=== PATIENT | male | born 1970 | race African-American/Black ===

== ENCOUNTER 2020-06-16 10:02 | Inpatient (IN) | payer MEDICARE, SELFPAY ==
[2020-06-16] VITALS (13 sets, daily range): BP systolic 132–194; BP diastolic 90–132; PULSE 58–99; RESP 16–26; TEMP 36.4–36.9; O2SAT 96–100; BMI 29.8; BMI 28.1
--- NOTE | 2020-06-16 10:22 | EKG12_ITS ---
Test Reason : DIZZY Blood Pressure : / mmHG Vent. Rate : 088 BPM Atrial Rate : 088 BPM P-R Int : 136 ms QRS Dur : 070 ms QT Int : 362 ms P-R-T Axes : 079 -38 -02 degrees QTc Int : 438 ms Normal sinus rhythm Left axis deviation Inferior infarct , age undetermined , cannot be excluded Abnormal ECG Confirmed by SHEFALI BOWERS, MAGALIS ([id number]), department editor MARVIN HERNANDEZ ([id number]) on 06/20/2020 10:54:12 AM Referred By: CELSO Confirmed By:MAGALIS MEEHAN MD
--- NOTE | 2020-06-16 10:24 | EDS_ITS ---
HPI History of Present Illness Chief Complaint: Dizziness Detail of Chief Complaint: Patient with symptoms for 2 days. Informant: patient Onset/Context/Timing Worsened by: Bright lights Narrative Narrative: Patient presents to the emergency department complaining of waking up 2 days ago with right eye pain and a headache. Patient states that he has been on an alcohol richards for the last 2 months and is not sure if he fell or injured himself. Patient denies any numbness or tingling in the extremities. He denies weakness the extremities. Patient has been nauseated and vomiting off and on for 2 days. Describes blurred vision from the right eye. Patient has history of hypertension, diabetes, neuropathy, and alcohol abuse. Patient does state that his last visit with his primary care physician his blood pressure was 190s over 140s. Prior similar symptoms: No [facility] Medical History (Updated 06/16/20 @ 12:[address] Madie Ruggiero, ) Alcohol abuse Neuropathy Allergy/AdvReac Type Severity Reaction Status Date / Time egg AdvReac Nausea/Vom/ Verified 06/16/20 10:07 Diarrhea Social History Smoking Status: Current every day smoker ROS ROS ED Constitutional Constitutional ED: Reports systems reviewed and no addt'l complaints, except as documented; Denies body ache(s), change in weight or chills Eyes Eyes: Reports blurry vision and other Details: Patient complains of right eye pain and headache and neck pain ; Denies acute decrease in peripheral vision, change in vision, double vision or loss of vision ENT ENT ED: Reports none and other; Denies ear pain, lip swelling, loss taste/smell, neck pain, otalgia or sore throat Cardiovascular Cardiovascular: Reports none; Denies abdominal pain, chest pain with activity, leg edema, lightheadedness, palpitations, rapid heart rate or syncope Respiratory/Chest Respiratory/Chest: Reports none; Denies change in mental status, dry cough, dyspnea, hemoptysis, shortness of breath at rest or shortness of breath with exertion Gastrointestinal Gastrointestinal: Reports none and vomiting; Denies abdominal pain, change in stool character, diarrhea, hematemesis, hematochezia, melena or rectal bleeding Genitourinary Genitourinary ED: Reports none; Denies abdominal discomfort, anuria, dysuria, genital pain or polyuria Musculoskeletal Musculoskeletal: Reports none; Denies arthralgias, back pain, difficulty walking, extremity pain, muscle weakness or myalgias Integumentary Reports none; Denies abscess or rash Neurologic Neurologic: Reports none, headache(s) and other Details: Patient complains of dizziness and difficulty with balance. ; Denies abnormal gait, confusion, focal weakness, frequent falls, loss of vision, numbness, paresthesias, radicular p ain, vertigo or weakness Psychiatric Psychiatric: Reports systems reviewed and no addt'l complaints, except as documented and none; Denies behavioral changes, confusion, difficulty concentrating, hallucinations, suicidal ideation, tactile hallucinations or visual hallucinations Endocrine Endocrinology: Denies none, cold intolerance, excessive sweating, fatigue or heat intolerance Hematologic/Lymphatic Hematologic/Lymphatic: Reports none; Denies anemia, easy bleeding or easy bruising Allergic/Immunologic Allergic/Immunologic ED: Denies as per HPI, none, lip swelling, mouth swelling, throat swelling, tongue swelling or hives EXAM Physical Exam Const Vital Signs: 06/16/20 10:03 06/16/20 10:42 06/16/20 10:45 Temperature 97.9 F Temperature Source Temporal Pulse Rate 65 91 Pulse Rate [Lying] 85 Pulse Rate [Sitting] 94 Pulse Rate [Standing] 99 Respiratory Rate 26 H 18 Blood Pressure 194/132 H 176/98 H Blood Pressure [Lying] 165/122 H Blood Pressure [Sitting] 170/107 H Blood Pressure [Standing] 178/118 H Blood Pressure Mean 152 124 Blood Pressure Mean [Lying] 136 Blood Pressure Mean [Sitting] 128 Blood Pressure Mean [Standing] 138 Pulse Ox 99 98 Oxygen Delivery Method Room Air Room Air 06/16/20 11:51 Temperature Temperature Source Pulse Rate Pulse Rate [Lying] Pulse Rate [Sitting] Pulse Rate [Standing] Respiratory Rate Blood Pressure 160/93 H Blood Pressure [Lying] Blood Pressure [Sitting] Blood Pressure [Standing] Blood Pressure Mean 115 Blood Pressure Mean [Lying] Blood Pressure Mean [Sitting] Blood Pressure Mean [Standing] Pulse Ox Oxygen Delivery Method Positive well nourished and well developed General Appearance ED: well developed and NAD HEENT Reports TM's clear and moist mucous membranes HEENT Narrative: Patient has diffuse tenderness to posterior scalp without evidence of bony step-offs or hematomas. normocephalic, atraumatic, trauma and tenderness Tympanic Membrane ED: Yes TM's clear Eyes PERRL and EOMs intact bilaterally General Eye ED: Yes other Other Details: Has tenderness palpation of the right globe. Pupils are bilaterally 2 mm and reactive. The cornea does not appear cloudy. ; Negative for pale conjunctiva or scleral icterus Neck no lymphadenopathy, supple and no JVD Neck Narrative: Patient has some diffuse tenderness over cervical spine and left cervical paraspinal musculature. General: tenderness Chest Wall inspection of chest normal and palpation of chest normal Chest: Negative for tenderness Resp normal respiratory effort and clear to auscultation bilaterally Effort and Inspection: Negative for respiratory distress or pain with movement Auscultation: Negative for rhonchi, wheezes or diminished lung sounds Cardio regular rate, regular rhythm, S1 normal heart sound, S2 normal heart sound and no murmurs Peripheral Pulses: pulses 2+ throughout GI normal to inspection, nondistended, normoactive bowel sounds, soft to palpation, non-tender, non-distended and no masses Back/Spine no CVA tenderness and no thoracic nor lumbar tenderness Extremity normal to inspection General Extremety ED: Negative for edema General Extremity: Negative for edema Neuro oriented x3, CN's II-XII intact bilaterally, no sensory deficits noted and gait normal Neuro Narrative: Finger-nose and heel dias testing within normal limits, negative Romberg, negative for drift, fundi benign. Hallpike maneuver performed was negative for nystagmus. Sensorium / Orientation: awake, alert, oriented to person, oriented to place and oriented to time Motor Exam: strength 5/5 throughout and strength abnormal Psych mental status grossly normal Skin no rashes or lesions noted and no wounds MDM MDM MDM Narrative Medical decision making narrative: Patient's labs essentially unremarkable. He does have some renal insufficiency. Discussed results with patient. At this point he still can continues to complain of dizziness with sitting up and monalisa ding and feeling like he is falling to the side. I recommended admission for further evaluation of his dizziness and I am concerned about possibly posterior circulation abnormality. Patient will need evaluation by ophthalmology as well as he complains of decreased vision in the right eye for several months but the pain in the eyes only been there for a couple of days. Lab Data Attestation: I reviewed the patient's lab results. Labs: Laboratory Results - last 24 hr 06/16/20 06/16/20 06/16/20 10:30 10:30 10:30 WBC 5.9 RBC 5.89 Hgb 17.3 H Hct 54.3 H MCV 92.2 MCH 29.4 MCHC 31.9 L RDW Std Deviation 45.0 H RDW Coeff of Bev 13.2 Plt Count 306 MPV 9.9 Immature Gran % (Auto) 0.200 Neut % (Auto) 39.8 L Lymph % (Auto) 33.3 [place] % (Auto) 19.6 H Eos % (Auto) 6.3 H Baso % (Auto) 0.8 Absolute Neuts (auto) 2.4 Absolute Lymphs (auto) 1.97 Nucleated RBC % 0 Sodium 138 Potassium 3.9 Chloride 104 Carbon Dioxide 32.0 Anion Gap 2 L BUN 16 Creatinine 1.87 H Estim Creat Clear Calc 53.60 Est GFR (MDRD) Af Amer 50 L Est GFR (MDRD) Non-Af 41 L BUN/Creatinine Ratio 8.6 L Glucose 142 H Calcium 9.4 Total Bilirubin 0.40 AST 23 ALT 21 Alkaline Phosphatase 84 Troponin I < 0.015 Total Protein 7.8 Albumin 3.2 Globulin 4.6 H Albumin/Globulin Ratio 0.7 L Lipase 106 Ethyl Alcohol 3.0 Radiography Diagnostic Testing: Radiology Impression Brain CT 06/16/20 11:00 IMPRESSION: Normal unenhanced CT scan of the brain. Electronically Signed: Dominick Fernandez MD at 11:27 EDT , Service support , Cervical Spine CT 06/16/20 11:00 IMPRESSION: Marked degree of the disc space narrowing with moderate degree of bilateral neural foraminal and moderate degree of central canal stenosis at the C5-C6 level. Electronically Signed: Dominick Fernandez MD at 11:29 EDT , Service support , EKG Initial EKG: Interpretation: Sinus Rhythm Comments: Sinus rhythm at 88 bpm with no acute ST segment changes noted. Prior EKG tracings: not available for review Discharge Plan Triage Chief Complaint: Dizziness ED Provider: Madie Ruggiero Dx/Rx/DC Orders Clinical Impression: Dizziness, Acute right eye pain, ETOH abuse Primary Care Provider: Michael Ritter Referrals: Michael Ritter, [Primary Care Provider] - Disposition Disposition: Acute Care Hospital [facility]
[2020-06-16] MEDS: Morphine 4 MG/ML Syringe IV (10:35)
[2020-06-16] MEDS: 0.9% Normal Saline 1,000 ML 1000 ML IV (10:35)
[2020-06-16] MEDS: Ondansetron 4 MG/2 ML Vial IV (10:35)
[2020-06-16 10:41] LABS: Absolute Lymphocyte Count 1.97 X10^3/uL (0.83-4.51); Absolute Neutrophil Count 2.4 X10^3/uL (2.0-7.7); Basophil# 0.05 X10^3/uL; Basophil% 0.8 % (0-1); Eosinophil# 0.37 X10^3/uL; Eosinophils% 6.3 % (0-5); Hematocrit 54.3 % (40-54); Hemoglobin 17.3 g/dL (13.0-16.5); Lymphocyte # 1.97 X10^3/ul (0.83-4.51); Lymphocyte % 33.3 % (19-41); Mean Corp Hgb Conc 31.9 g/dL (32-36); Mean Corpuscular Hgb 29.4 pg (27.0-32.0); Mean Corpuscular Volume 92.2 fL (80-94); Mean Platelet Vol. 9.9 fl (6.2-12.0); Monocyte# 1.16 X10^3/uL; Monocyte% 19.6 % (0-10); NRBC Flagged by Analyzer 0 % (0-5); Neutrophil # 2.36 X10^3/uL (2.7-7.7); Neutrophil % 39.8 % (47-70); Platelet Count 306 K/mm3 (150-450); RBC Distribution Width CV 13.2 % (11.6-14.6); Red Blood Count 5.89 M/mm3 (4.6-6.2); White Blood Count 5.9 K/mm3 (4.4-11.0)
[2020-06-16 10:53] LABS: ALB/GLOB Ratio 0.7 RATIO (0.9-2.4); AST(SGOT) 23 U/L (15-37); Alanine Aminotransfer ALT/SGPT 21 U/L (16-61); Albumin, Serum 3.2 g/dL (3.2-5.0); Alkaline Phosphatase 84 U/L (45-117); Anion Gap 2 (5-15); BUN 16 mg/dL (7-18); BUN/Creat Ratio 8.6 RATIO (10-20); Calcium,Total 9.4 mg/dL (8.5-10.1); Chloride 104 mmol/L (98-107); Creatinine, Serum 1.87 mg/dL (0.70-1.30); EST Glomerular Filtration Rate 41 mL/min (>60); Est Glom Filt Rate - Afr Amer 50 mL/min (>60); Globulin 4.6 g/dL (2.2-4.2); Glucose 142 mg/dL (74-106); Lipase 106 U/L (73-393); Potassium 3.9 mmol/L (3.5-5.1); Protein, Total 7.8 g/dL (6.4-8.2); Sodium Level 138 mmol/L (136-145)
--- NOTE | 2020-06-16 11:00 | CT_ITS ---
STUDY: CT BRAIN WITHOUT CONTRAST REASON FOR EXAM: Male, 49 years old. HEADACHE. Dizziness. Tremors. Vomiting. RADIATION DOSAGE (If Supplied By Facility): CTDIvol = ( 44.99 ) mGy, DLP = ( 829.85 ) mGycm TECHNIQUE: Transaxial CT imaging of the brain was performed without administration of intravenous contrast material. Individualized dose optimization techniques were used for this CT. COMPARISON: No relevant priors. FINDINGS: Normal soft tissue structures. Normal calvarium. Normal size ventricles and extra-axial spaces for the patient''s age. Normal white matter tracts of the cerebral hemispheres. Normal basal ganglia and thalami. Normal brainstem. Normal cerebellum. There is no intracranial hemorrhage. There are no findings of an acute ischemic infarction. Normal visualized paranasal sinuses. CT/Brain/Head without Contrast IMPRESSION: Normal unenhanced CT scan of the brain. Electronically Signed: Dominick Fernandez MD at 11:27 EDT , Service support ,
--- NOTE | 2020-06-16 11:00 | CT_ITS ---
STUDY: CT CERVICAL SPINE WITHOUT CONTRAST REASON FOR EXAM: Male, 49 years old. Neck pain. Dizziness and headaches. RADIATION DOSAGE (If Supplied By Facility): CTDIvol = ( 27.86 ) mGy, DLP = ( 634.98 ) mGycm TECHNIQUE: High resolution transaxial imaging was performed without contrast material. Sagittal and coronal images were reconstructed. Individualized dose optimization techniques were used for this CT. COMPARISON: None FINDINGS: Normal craniovertebral junction. Normal anterior atlantoaxial articulation. Normal odontoid process. There is straightening of the normal cervical lordosis. Normal vertebral bodies and posterior osseous elements. C2-3: Normal endplates. Normal disc height and morphology. Normal central canal and intervertebral neuroforamina. C3-4: Marked degree of disc space narrowing. Spondylosis. C4-5: Marked degree of disc space narrowing. Prominent anterior spondylosis. Minimal degree of retrolisthesis of C4 on C5. Moderate degree of bilateral neural foraminal and moderate degree of central canal stenosis. C5-6: The patient is status post anterior fusion at the C5-C6 level. There is obliteration of the disc space. C6-7: Normal endplates. Normal disc height and morphology. Normal central canal and intervertebral neuroforamina. C7-T1: Normal endplates. Normal disc height and morphology. Normal central canal and intervertebral neuroforamina. Normal visualized soft tissue structures. CT/Spine Cervical without Contras IMPRESSION: Marked degree of the disc space narrowing with moderate degree of bilateral neural foraminal and moderate degree of central canal stenosis at the C5-C6 level. Electronically Signed: Dominick Fernandez MD at 11:29 EDT , Service support ,
[2020-06-16] MEDS: Labetalol 100 MG/20 ML Vial 20 MG IV (11:07)
[2020-06-16] MEDS: Tetracaine 0.5% Ophthalmic Bottle 1 DRP RIGHT EYE (11:48)
[2020-06-16] MEDS: HYDROmorphone 1 MG/ML Syringe IV (11:50)
[2020-06-16] MEDS: 0.9% Normal Saline 1,000 ML 150 ML IV (13:56)
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
--- NOTE | 2020-06-16 16:15 | CASEMGMT ---
RN CM HOME SPECIALIST CM to room to meet with patient for initial transition planning/care coordination assessment. RN AZUCENA introduced self and role at [facility]. Pt voices understanding and consents to assessment at this time. Pt resting in bed in no distress at this time. Pt is A/O at this time and answers all questions appropriately. Care providers, pharmacy, and demographics verified/updated at this time. PCP: Dr Ritter Specialists: none Preferred Pharmacy: [facility] [place] Insurance: [facility] Prescription Benefit: Yes Living Will/HPOA: Has both. , [place]ie, is Healthcare POA LNOK: , [place] Living Arrangements: Lives w/his , Dixie, daughter, and grandson in 2-story home. Denies difficulty w/stairs. Independent w/ADL's. /pt share home mgmt tasks. Transportation: DME: States has the following DME: cane, nebulizer, glucometer. States may be interested in getting a shower chair at some time. Pt made aware insurance does not cover these and informed of where these could be purchased. Pt states no need for further DME at this time. HHC/SNF: No hx of SNF. Has had HHC in the past for wound care after surgery. Denies need for HHC or OP therapy. Pt wishes to return home and states has no concerns with going home at time of discharge. CM to follow for any discharge planning/needs. Pt voices no concerns/needs at this time. Advised pt to ask for CM if any questions/concerns/needs arise. Voices understanding. PLAN: Home SW c/s for ETOH use. Taras ZEPEDA RN, CM
[2020-06-16 17:53] LABS: Bacteria 0 SEEN /hpf (None Seen); Mucous, Urine 0 SEEN /hpf (<or=2+); White Blood Cells 0 SEEN /hpf (0-5)
[2020-06-16 17:59] LABS: Color, Urine Yellow (Yellow); Glucose, Dipstick 1000 mg/dl (Normal); Ketone-Dipstick 5 mg/dl (Negative); Leukocyte Esterase-Dipstick Negative /ul (Negative); Nitrite-Dipstick Negative (Negative); Occult Blood-Urine 10 /ul (Negative); Protein-Dipstick 500 mg/dl (Negative); Specific Gravity, Urine 1.025 (1.002-1.030); Urine Bilirubin Dipstick Negative (Negative); Urine Clarity Clear (Clear); Urine Urobilinogen 4 mg/dl (Normal)
[2020-06-16 18:37] LABS: Red Blood Cells-Urine 0-5 SEEN /hpf (0-5)
[2020-06-16 18:38] LABS: Squamous Epithelial Cells - UA 0-5 SEEN /hpf (0-5)
[2020-06-16] MEDS: hydrALAZINE 20 MG/ML Vial 10 MG IV (19:21)
[2020-06-16] MEDS: 0.9% Saline Lock 10 ML Syringe IV (19:22)
[2020-06-16] MEDS: Acetaminophen 325 MG Tablet 650 MG PO (20:24)
[2020-06-16 20:36] LABS: Bedside Glucose 230 mg/dL (70-110)
[2020-06-16] MEDS: Insulin Lispro 100 UNIT/ML INSULN.PEN SC (20:40)
[2020-06-16] MEDS: Baclofen 10 MG Tablet PO (20:40)
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
[2020-06-16] MEDS: 0.9% Normal Saline 1,000 ML 125 ML IV (22:34)
[2020-06-16] MEDS: Albuterol 2.5 MG/3 ML VIAL.NEB. INHALATION (22:36)
[2020-06-16] MEDS: Budesonide Respules 0.5 MG/2 ML AMPUL.NEB. INHALATION (22:37)
[2020-06-17] VITALS (8 sets, daily range): BP systolic 149–160; BP diastolic 76–109; PULSE 68–106; RESP 16–18; TEMP 36.6–36.7; O2SAT 94–100
[2020-06-17 02:56] LABS: Bedside Glucose 50 mg/dL (70-110)
[2020-06-17 03:16] LABS: Bedside Glucose 99 mg/dL (70-110)
[2020-06-17] MEDS: 0.9% Normal Saline 1,000 ML 125 ML IV (06:17)
[2020-06-17] MEDS: Albuterol 2.5 MG/3 ML VIAL.NEB. INHALATION ×2 (06:51→19:22)
[2020-06-17] MEDS: Budesonide Respules 0.5 MG/2 ML AMPUL.NEB. INHALATION ×2 (06:51→19:22)
[2020-06-17 07:00] LABS: Absolute Neutrophil Count 1.5 X10^3/uL (2.0-7.7); Basophil# 0.03 X10^3/uL; Basophil% 0.7 % (0-1); Eosinophil# 0.44 X10^3/uL; Hematocrit 46.9 % (40-54); Hemoglobin 14.9 g/dL (13.0-16.5); Lymphocyte % 38.8 % (19-41); Mean Corp Hgb Conc 31.8 g/dL (32-36); Mean Corpuscular Hgb 29.2 pg (27.0-32.0); Mean Corpuscular Volume 91.8 fL (80-94); Monocyte# 0.68 X10^3/uL; Monocyte% 15.5 % (0-10); NRBC Flagged by Analyzer 0 % (0-5); Neutrophil # 1.53 X10^3/uL (2.7-7.7); Platelet Count 257 K/mm3 (150-450); RBC Distribution Width CV 13.2 % (11.6-14.6); RBC Distribution Width SD 44.7 fl (35.1-43.9); Red Blood Count 5.11 M/mm3 (4.6-6.2); White Blood Count 4.4 K/mm3 (4.4-11.0)
[2020-06-17 07:25] LABS: Anion Gap 4 (5-15); BUN 10 mg/dL (7-18); BUN/Creat Ratio 7.1 RATIO (10-20); Calcium,Total 8.4 mg/dL (8.5-10.1); Chloride 110 mmol/L (98-107); EST Glomerular Filtration Rate 58 mL/min (>60); Est Glom Filt Rate - Afr Amer 70 mL/min (>60); Glucose 106 mg/dL (74-106); Potassium 3.5 mmol/L (3.5-5.1); Sodium Level 140 mmol/L (136-145)
[2020-06-17] MEDS: Insulin Lispro 100 UNIT/ML INSULN.PEN 20 UNIT SC ×2 (08:23→12:14)
[2020-06-17] MEDS: Gabapentin 600 MG Tablet PO ×3 (08:24→19:59)
[2020-06-17] MEDS: Gabapentin 300 MG Capsule PO ×3 (08:24→19:59)
[2020-06-17] MEDS: Tamsulosin HCl 0.4 MG Capsule PO (08:25)
[2020-06-17] MEDS: amLODIPine 10 MG Tablet PO (08:25)
[2020-06-17] MEDS: Baclofen 10 MG Tablet PO ×4 (08:25→21:40)
[2020-06-17] MEDS: Pantoprazole Sodium 20 MG Tablet PO (08:26)
--- NOTE | 2020-06-17 08:42 | NURSING ---
bp meds given early d/t elevated b/p
[2020-06-17] MEDS: Acetaminophen 325 MG Tablet 650 MG PO (10:12)
[2020-06-17] MEDS: LORazepam 2 MG/ML Syringe IV (10:13)
--- NOTE | 2020-06-17 10:35 | CT_ITS ---
STUDY: CT BRAIN WITHOUT CONTRAST REASON FOR EXAM: Male, 49 years old. Dizziness for several days, right vision loss RADIATION DOSAGE (If Supplied By Facility): CTDIvol = ( 38.43 ) mGy, DLP = ( 712.69 ) mGycm TECHNIQUE: Transaxial CT imaging of the brain was performed without administration of intravenous contrast material. Individualized dose optimization techniques were used for this CT. COMPARISON: Yesterday FINDINGS: Normal soft tissue structures. Normal calvarium. Normal size ventricles and extra-axial spaces for the patient''s age. Normal white matter tracts of the cerebral hemispheres. Normal basal ganglia and thalami. Normal brainstem. Normal cerebellum. There is no intracranial hemorrhage. There are no findings of an acute ischemic infarction. Normal visualized paranasal sinuses. CT/Brain/Head without Contrast IMPRESSION: Normal unenhanced CT scan of the brain. Electronically Signed: Shay Villalobos MD ([place]) at 11:50 EDT , Service support ,
--- NOTE | 2020-06-17 11:27 | NURSING ---
to CT scan via bed
--- NOTE | 2020-06-17 11:40 | CASEMGMT ---
SOCIAL WORK Referral Source: Case Management Reason for Referral: Substance Abuse-alcohol Met with patient and patient's in room. Patient gave permission to speak openly with present. Patient admits to daily alcohol use and states, I drink to get drunk. It helps me forget. Patient tearful stating, my family wants me to do this, and I think I'm ready. Education provided on RAMP. Patient wanting detox at this time. Informed nursing and physician. Will update [facility] Treatment Navigator. Plan: RANJEET Fernandez MSW, SR ACCOUNT EXECUTIVE
[2020-06-17 12:00] LABS: Bedside Glucose 406 mg/dL (70-110)
[2020-06-17] MEDS: Phenobarbital 32.4 MG Tablet 64.8 MG PO ×3 (12:13→19:59)
[2020-06-17] MEDS: Insulin Lispro 100 UNIT/ML INSULN.PEN SC ×2 (12:14→21:40)
--- NOTE | 2020-06-17 12:35 | NURSING ---
Marques Barrett navigator informed of pt's agreement to the RAMP program.
--- NOTE | 2020-06-17 12:43 | NURSING ---
reviewed all10 of RAMP med detox guidelines and pt tearfully signed- aware she is to leave room by 12:45
--- NOTE | 2020-06-17 13:52 | CASEMGMT ---
SOCIAL WORK Call to Marques with [facility]. Marques reports was notified by nursing and will be in to complete assessment. Fred Fernandez, INSPECTOR SET UP AND LAY OUT, COMPENSATION ADMINISTRATOR
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
[2020-06-17 17:05] LABS: Bedside Glucose 134 mg/dL (70-110)
[2020-06-17 21:50] LABS: Bedside Glucose 298 mg/dL (70-110)
[2020-06-18] VITALS (9 sets, daily range): BP systolic 146–219; BP diastolic 84–143; PULSE 92–112; RESP 16–18; TEMP 36.4–36.9; O2SAT 93–98
[2020-06-18] MEDS: Phenobarbital 32.4 MG Tablet 64.8 MG PO ×7 (00:19→23:37)
[2020-06-18] MEDS: LORazepam 1 MG Tablet 2 MG PO ×2 (05:00→19:18)
[2020-06-18] MEDS: Folic Acid 1 MG Tablet PO (08:26)
[2020-06-18] MEDS: Gabapentin 300 MG Capsule PO ×2 (08:26→11:38)
[2020-06-18] MEDS: Thiamine Hydrochloride 100 MG Tablet PO (08:27)
[2020-06-18] MEDS: Gabapentin 600 MG Tablet PO ×3 (08:27→16:57)
[2020-06-18] MEDS: Tamsulosin HCl 0.4 MG Capsule PO (08:27)
[2020-06-18] MEDS: Baclofen 10 MG Tablet PO ×4 (08:29→20:12)
[2020-06-18] MEDS: amLODIPine 10 MG Tablet PO (08:29)
[2020-06-18] MEDS: Pantoprazole Sodium 20 MG Tablet PO (08:30)
[2020-06-18] MEDS: hydrALAZINE 20 MG/ML Vial 10 MG IV ×2 (08:42→20:11)
[2020-06-18 09:01] LABS: Anion Gap 5 (5-15); BUN 9 mg/dL (7-18); BUN/Creat Ratio 5.8 RATIO (10-20); Calcium,Total 8.7 mg/dL (8.5-10.1); Chloride 107 mmol/L (98-107); Creatinine, Serum 1.56 mg/dL (0.70-1.30); EST Glomerular Filtration Rate 51 mL/min (>60); Est Glom Filt Rate - Afr Amer 61 mL/min (>60); Estimated Creatinine Clearance 64.25 ml/min; Glucose 199 mg/dL (74-106); Potassium 4.2 mmol/L (3.5-5.1); Sodium Level 137 mmol/L (136-145)
--- NOTE | 2020-06-18 09:22 | NURSING ---
hydralazine given 10 ivp for elevated bp once iv access obtained
[2020-06-18] MEDS: Insulin Lispro 100 UNIT/ML INSULN.PEN 20 UNIT SC ×2 (10:17→11:36)
[2020-06-18] MEDS: Carvedilol 3.125 MG TABLET PO ×2 (10:17→20:12)
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
[2020-06-18] MEDS: Insulin Lispro 100 UNIT/ML INSULN.PEN SC ×2 (11:36→22:10)
[2020-06-18 11:40] LABS: Bedside Glucose 308 mg/dL (70-110)
[2020-06-18 16:35] LABS: Bedside Glucose 88 mg/dL (70-110)
[2020-06-18] MEDS: 0.9% Normal Saline 1,000 ML 125 ML IV ×2 (16:56→23:41)
[2020-06-18] MEDS: Acetaminophen 325 MG Tablet 650 MG PO (19:16)
[2020-06-18] MEDS: traZODone 100 MG Tablet PO (20:15)
[2020-06-18] MEDS: Budesonide Respules 0.5 MG/2 ML AMPUL.NEB. INHALATION (20:23)
[2020-06-18] MEDS: Albuterol 2.5 MG/3 ML VIAL.NEB. INHALATION (20:23)
[2020-06-19] VITALS (30 sets, daily range): BP systolic 97–189; BP diastolic 64–127; PULSE 60–98; RESP 17–24; TEMP 35.7–37; O2SAT 94–100
[2020-06-19] MEDS: LORazepam 2 MG/ML Syringe IV ×4 (00:07→06:44)
[2020-06-19] MEDS: Haloperidol Lactate 5 MG/ML Vial 2 MG IM ×2 (01:05→05:23)
[2020-06-19] MEDS: Acetaminophen 325 MG Tablet 650 MG PO (01:07)
--- NOTE | 2020-06-19 01:34 | NURSING ---
x1 Haldol order given, TYPE BAR AND SEGMENT ASSEMBLER pulled off the floor to sit with patient for awhile, Turkey Pinner aware.
[2020-06-19 02:41] LABS: Bedside Glucose 121 mg/dL (70-110)
[2020-06-19 03:26] LABS: Bedside Glucose > 500 mg/dL (70-110)
--- NOTE | 2020-06-19 04:08 | NURSING ---
Sitter remains at bedside, patient attempted to use the BSC/ and urinal 4 times within 10 minutes, patient very confused and unsteady yet adamant he needed to go. x3 staff rn's assisted him during this time. Patient finally able to void 300mls of clear urine. Primary RN paged for dulcolax suppository. Will continue to monitor.
[2020-06-19] MEDS: cloNIDine HCl 0.1 MG Tablet PO (05:09)
--- NOTE | 2020-06-19 05:22 | NURSING ---
paged about IV phenobarbital, per RN finishing department supervisor this unit cannot given IV phenobarbital per policy. MD notified. New orders received to D/C phenobar and give IM haldol. Phenobarbital returned to pharmacy.
--- NOTE | 2020-06-19 05:34 | NURSING ---
made Dr. Yuan aware pt spit out his 4 am phinobarb, ordered clonidine prn and phonobarb Iv. spoke with Eddie from pharmacy states ok to give phenobarb IV but with filter. gave clonidine to pt. pt stil restless and agitated. spoke to Dr. Yuan states since Iv phenobarb cannot be given on floor, asked discharge rn per data warehouse manager we cannot give IV phenobarb unless pt is in critical care area. states ok to give haldol now and d/c Iv phenobarbital.
--- NOTE | 2020-06-19 06:27 | NURSING ---
pt will be tx to ICU bed 3, report called to Sharla JACKSON in ICU.
[2020-06-19 06:35] LABS: Bedside Glucose 158 mg/dL (70-110)
--- NOTE | 2020-06-19 06:35 | NURSING ---
called Dixie Mclain, pts , made her aware pt is transferred in ICU bed 3 this morning d/t the meds were giving for his withdrawal are not working and he will be monitored there closely.
[2020-06-19] MEDS: 0.9% Saline Lock 10 ML Syringe IV (06:59)
[2020-06-19] MEDS: hydrALAZINE 20 MG/ML Vial 10 MG IV (06:59)
--- NOTE | 2020-06-19 07:09 | EX.PCM.CONCC ---
Assessment & Plan Assessment/Plan (1) Alcohol withdrawal: Status: Acute Code(s): F10.239 - Alcohol dependence with withdrawal, unspecified Plan: RECOMMENDATIONS: 1. Continue to monitor patient per [facility] protocol. 2. Start Precedex infusion for alcohol withdrawal symptoms. 3. Continue thiamine and folate. 4. Continue bronchodilator and inhaled corticosteroid. IMPRESSIONS: 1. Acute alcohol withdrawal The patient has a longstanding alcohol abuse history and was initially being maintained on a phenobarbital taper. However, the patient subsequently began to refuse to take p.o. medications and developed worsening agitation. He was then transferred to the ICU to be initiated on a Precedex infusion for symptomatic management of his alcohol withdrawal symptoms. Will also plan to continue thiamine and folate as previously ordered. 2. Acute kidney injury Likely prerenal in etiology. Given that the patient is currently n.p.o., supplemental IV fluids will be continued. Continue to monitor urine output. No current indication for renal replacement therapy. 3. History of hypertension/COPD/diabetes mellitus Complicates care, management, recovery and prognosis. Continue home medications as indicated. This note was generated with SnipSnap dictation software. It may contain incorrect words, spelling, and punctuation that were not noted in checking the note before signing. HPI Consult Data Date of Consult: 06/19/20 HPI Narrative Reason for Consultation: Acute alcohol withdrawal HPI Narrative: The patient is a 49-year-old male, with a history as outlined below, who presented to the emergency department on June 16 with complaints of dizziness and right eye pain. History pertinent to the patient's hospitalization was obtained primarily via chart review, as the patient is too somnolent to provide any additional input. The patient does have a history of chronic alcohol dependency. On presentation to the emergency department, the patient was noted to be afebrile and hemodynamically stable. He was maintaining appropriate oxygen saturations on room air. Initial laboratory evaluation revealed a normal white blood cell count. Chemistry profile was notable for a creatinine of 1.87. Alcohol level was unremarkable. CT head was also unremarkable. The patient was subsequently admitted to the hospital for further work-up of his dizziness and was placed on the CIIL protocol for possible alcohol withdrawal. The patient was initially on a phenobarbital taper and was receiving Ativan as needed. However, during the payroll secretary hours of June 19, the patient refused to take his phenobarbital and subsequently became more agitated. Therefore, he was transferred to the medical intensive care unit to be initiated on a Precedex infusion. The patient was last noted to have a total CIWA score of 18. [facility] Medical History (Updated 06/19/20 @ 09:[address] Jaquan Carlin MD) Alcohol abuse Alcohol abuse Anxiety Chronic pain COPD (chronic obstructive pulmonary disease) Depression Diabetes Hypertension Kidney disease Myocardial infarct Neuropathy Seizures Smoker Substance abuse Vision loss of right eye (~06/14/20) Home Medications albuterol sulfate 2.5 mg INHALATION Q4H PRN 06/16/20 [History Last Taken 1 Month Ago ~05/16/20] baclofen 10 mg PO 4X/DAY 06/16/20 [History Last Taken 06/14/20] budesonide-formoterol [Symbicort] 2 puff INHALATION BID 06/16/20 [History Last Taken 06/14/20] furosemide [Lasix] 10 mg PO DAILY 06/16/20 [History Last Taken Unknown] gabapentin 300 mg PO TID 06/16/20 [History Last Taken 06/14/20] gabapentin 600 mg PO TID 06/16/20 [History Last Taken 06/14/20] hydroxyzine HCl 50 mg PO TID PRN PRN 06/16/20 [History Last Taken 1 Month Ago ~05/16/20] insulin aspart U-100 20 unit SUBCUT TID 06/16/20 [History Last Taken 06/14/20] insulin glargine [Basaglar KwikPen U-100 Insulin] 40 unit SUBCUT QHS 06/16/20 [History Last Taken 06/15/20] lisinopril-hydrochlorothiazide 1 tab PO DAILY 06/16/20 [History Last Taken 06/15/20] omeprazole 20 mg PO DAILY 06/16/20 [History Last Taken 06/15/20] tamsulosin [Flomax] 0.4 mg PO DAILY 06/16/20 [History Last Taken Unknown] Allergy/AdvReac Type Severity Reaction Status Date / Time egg AdvReac Nausea/Vom/ Verified 06/16/20 10:07 Diarrhea Social History Smoking Status: Current every day smoker ROS Review of Systems ROS Unobtainable: due to encephalopathy and due to mental condition Physical Exam Narrative The patient's most recent lab work, culture data and imaging studies have all been personally reviewed. Const no apparent distress Exam Limitations: altered mental status HEENT normocephalic Mouth: oral and palatal mucosa normal Eyes PERRL Neck supple General: trachea midline Resp normal respiratory effort Effort and Inspection: tachypneic Auscultation: Negative for rales, rhonchi or wheezes Cardio S1 normal heart sound and S2 normal heart sound Rate: tachycardic GI normal to inspection, nondistended, normoactive bowel sounds Extremity no clubbing, cyanosis or edema Skin no rashes or lesions noted Neuro moves all extremities and no focal motor deficits Psych Activity / Motor Behavior: restless Lab / Micro Data Result Diagrams: 06/17/20 06:30 06/19/20 08:55 Labs: Laboratory Results - last 24 hr 06/18/20 06/18/20 06/18/20 08:30 11:32 15:50 Sodium 137 Potassium 4.2 Chloride 107 Carbon Dioxide 25.0 Anion Gap 5 BUN 9 Creatinine 1.56 H Estim Creat Clear Calc 64.25 Est GFR (MDRD) Af Amer 61 Est GFR (MDRD) Non-Af 51 L BUN/Creatinine Ratio 5.8 L Glucose 199 H Calcium 8.7 POC Glucose 308 H 88 06/18/20 06/19/20 06/19/20 22:00 02:28 06:21 Sodium Potassium Chloride Carbon Dioxide Anion Gap BUN Creatinine Estim Creat Clear Calc Est GFR (MDRD) Af Amer Est GFR (MDRD) Non-Af BUN/Creatinine Ratio Glucose Calcium POC Glucose > 500 H* 121 H 158 H Charges/Coding Visit Charges Inpatient E&M: 56270 Init Hosp L3
[2020-06-19] MEDS: 0.9% Normal Saline 1,000 ML 125 ML IV ×3 (07:42→23:11)
[2020-06-19] MEDS: Insulin Lispro 100 UNIT/ML INSULN.PEN SC ×2 (08:49→11:34)
[2020-06-19 08:55] LABS: Bedside Glucose 242 mg/dL (70-110)
--- NOTE | 2020-06-19 09:04 | PCM.PN.HOSP ---
Subjective Subjective: Patient is a 49-year-old gentleman with history of chronic alcohol dependence admitted with acute alcohol withdrawal. Patient was initially admitted to regular nursing floor for medical stabilization however he went into delirium tremens resulting in patient being transferred to the intensive care unit where patient was started on Precedex drip Objective Data Objective Data Vital Signs: Vital Signs Temp Pulse Resp BP Pulse Ox 97.8 F 91 24 H 166/105 H 99 06/19/20 06:39 06/19/20 09:00 06/19/20 09:00 06/19/20 09:00 06/19/20 09:00 Oxygen Delivery Method Room Air Weight: 207 lb 7.28 oz Body Mass Index (BMI) 28.1 Intake & Output: Intake and Output for Last 24 Hours 06/17/20 06/18/20 06/19/20 23:59 23:59 23:59 Intake Total 3664.58 / 3664.58 1443.75 / 1443.75 1015.33 / 1015.33 Output Total 3000 / 4000 3186 / 3186 2900 / 2900 Balance 664.58 / -335.42 -1742.25 / -1742.25 -1884.67 / -1884.67 Lab / Micro Data Result Diagrams: 06/17/20 06:30 06/19/20 08:55 Labs: Laboratory Results - last 24 hr 06/18/20 06/18/20 06/18/20 11:32 15:50 22:00 POC Glucose 308 H 88 > 500 H* 06/19/20 06/19/20 06/19/20 02:28 06:21 08:47 POC Glucose 121 H 158 H 242 H Physical Exam Narrative GENERAL: Significantly lethargic HEENT: Atraumatic; EYES; Anicteric, Normal Conjunctiva NECK; supple, normal thyroid, RESPIRATORY: Diminished to auscultation CARDIOVASCULAR: Regular S1 S2, GI: soft, normoactive bowel sounds, : No Renal angle tenderness; EXTREMITIES: No edema, no clubbing, MUSCULOSKELETAL: no muscle waisting NEURO: Lethargic but moving all extremities SKIN: No Rash PSYCH; lethargic Assessment & Plan Assessment/Plan (1) Alcohol withdrawal: Status: Acute Code(s): F10.239 - Alcohol dependence with withdrawal, unspecified Qualifiers: Complication of substance-induced condition: with delirium Qualified Code(s): F10.231 - Alcohol dependence with withdrawal delirium (2) Hypertension: Status: Chronic Code(s): I10 - Essential (primary) hypertension (3) BRIDGER (acute kidney injury): Status: Acute Code(s): N17.9 - Acute kidney failure, unspecified (4) Diabetes mellitus type 2 without retinopathy: Status: Acute Code(s): E11.9 - Type 2 diabetes mellitus without complications Plan: Patient is a 49-year-old gentleman with history of chronic alcohol dependence admitted with acute alcohol withdrawal. Patient was initially admitted to regular nursing floor for medical stabilization however he went into delirium tremens resulting in patient being transferred to the intensive care unit where patient was started on Precedex drip 1. Acute alcohol withdrawal with delirium tremens ?Patient was initially admitted for medical stabilization using phenobarb taper and managed on a regular nursing floor his condition however did worsen resulting in patient being transferred to the intensive care unit with initiation of Precedex drip and consultation placed to telemetry service 2. Accelerated hypertension ?Did continue patient home medications. Patient blood pressure control still not optimal plan is to adjust home meds with a goal of systolic of 140 and diastolic of 80 3. Acute kidney injury ?Patient was managed with hydration patient is on Lasix held on admission with subsequent monitoring of electrolyte 4. Diabetes mellitus type II -patient's oral hypoglycemics held. Placed on long acting insulin, Accu-Cheks a.c. and at bedtime and covered with sliding scale insulin 5. COPD ?Currently not seen exacerbation however did continue patient home bronchodilator regimen 6. BPH ?Patient is on tamsulosin did continue 7. GERD ?Patient is on PPI continued 8. DVT prophylaxis - On enoxaparin
[2020-06-19 09:24] LABS: Anion Gap 8 (5-15); BUN 10 mg/dL (7-18); BUN/Creat Ratio 8.3 RATIO (10-20); Calcium,Total 8.9 mg/dL (8.5-10.1); Chloride 102 mmol/L (98-107); EST Glomerular Filtration Rate 69 mL/min (>60); Est Glom Filt Rate - Afr Amer 83 mL/min (>60); Estimated Creatinine Clearance 83.53 ml/min; Glucose 203 mg/dL (74-106); Potassium 3.6 mmol/L (3.5-5.1); Sodium Level 136 mmol/L (136-145)
--- NOTE | 2020-06-19 09:33 | CASEMGMT ---
This RN AZUCENA participated in multidisciplinary rounds. Pt was admitted to [facility] for dizziness and ETOH abuse. Pt did sign papers for the ETOH detox program on 06/17/20 with SW. [facility] was notified at that time. Pt was transferred to ICU this am d/t increased w/d symptoms. Pt is not following commands and is very restless in bed. Pt is also hypertensive. SW to follow for ETOH detox. SStaten RENETTA ZENG
[2020-06-19] MEDS: Enoxaparin 40 MG/0.4 ML Syringe SC (11:34)
[2020-06-19 11:40] LABS: Bedside Glucose 197 mg/dL (70-110)
--- NOTE | 2020-06-19 11:40 | CASEMGMT ---
Social Work Note Pt is RAMP pt. SW updated Gisela with [employer]. Gisela to see pt once pt is medically stable and out of ICU. Bisi Duong ASSISTANT PROFESSOR OF ENGLISH, NURSE MIDWIFE
[2020-06-19] MEDS: Albuterol 2.5 MG/3 ML VIAL.NEB. INHALATION ×2 (13:17→18:50)
--- NOTE | 2020-06-19 15:53 | CHAPLAIN ---
Type of Pastoral Visit ___ Initial Visit ___ Follow-up Visit ___ On-call Visit ___ General Patient Visit ___ Spiritual Assessment ___ Family Conference ___ Bereavement ___ Rapid Response ___ Code Blue ___ Other (describe below) Pastoral Care Referral From ___ Patient ___ Family ___ Nurse ___ Physician ___ Plastics Design Engineer ___ High School Admissions Representative ___ Other (describe below) Sacrament/Intervention ___ Active listening ___ Anointing ___ Orthodoxy ___ Bereavement ___ Communion ___ Giselle exploration ___ ___ Life review ___ Prayer ___ Reconciliation ___ Sacrament of Sick ___ Supportive presence ___ Wedding ___ Other (describe below) Pastoral Comments patient is sedated and is sleeping with sitter in the room; no interventions performed on this date
[2020-06-19 17:11] LABS: Bedside Glucose 152 mg/dL (70-110)
[2020-06-19] MEDS: Budesonide Respules 0.5 MG/2 ML AMPUL.NEB. INHALATION (18:49)
[2020-06-20] VITALS (34 sets, daily range): BP systolic 94–181; BP diastolic 66–139; PULSE 63–102; RESP 12–21; TEMP 35.9–36.8; O2SAT 95–100
[2020-06-20 01:18] LABS: Bedside Glucose 134 mg/dL (70-110)
[2020-06-20 03:15] LABS: Absolute Lymphocyte Count 2.12 X10^3/uL (0.83-4.51); Basophil# 0.04 X10^3/uL; Basophil% 0.7 % (0-1); Eosinophil# 0.31 X10^3/uL; Eosinophils% 5.2 % (0-5); Hematocrit 48.7 % (40-54); Hemoglobin 15.8 g/dL (13.0-16.5); Lymphocyte # 2.12 X10^3/ul (0.83-4.51); Lymphocyte % 35.7 % (19-41); Mean Corp Hgb Conc 32.4 g/dL (32-36); Mean Corpuscular Hgb 29.5 pg (27.0-32.0); Mean Corpuscular Volume 90.9 fL (80-94); Mean Platelet Vol. 9.5 fl (6.2-12.0); Monocyte# 0.45 X10^3/uL; Monocyte% 7.6 % (0-10); NRBC Flagged by Analyzer 0 % (0-5); Neutrophil # 3.01 X10^3/uL (2.7-7.7); Neutrophil % 50.6 % (47-70); Platelet Count 307 K/mm3 (150-450); RBC Distribution Width SD 43.5 fl (35.1-43.9); Red Blood Count 5.36 M/mm3 (4.6-6.2); White Blood Count 5.9 K/mm3 (4.4-11.0)
[2020-06-20 03:27] LABS: Anion Gap 7 (5-15); BUN 13 mg/dL (7-18); BUN/Creat Ratio 11.4 RATIO (10-20); Calcium,Total 8.4 mg/dL (8.5-10.1); Chloride 108 mmol/L (98-107); Creatinine, Serum 1.14 mg/dL (0.70-1.30); EST Glomerular Filtration Rate 73 mL/min (>60); Est Glom Filt Rate - Afr Amer 88 mL/min (>60); Estimated Creatinine Clearance 87.92 ml/min; Glucose 149 mg/dL (74-106); Magnesium 2.1 mg/dL (1.6-2.6); Potassium 4.2 mmol/L (3.5-5.1); Sodium Level 139 mmol/L (136-145)
--- NOTE | 2020-06-20 06:34 | PCM.PN.INT ---
Subjective Subjective: The patient was seen and examined at the bedside this morning. Events from the last 24 hours have been reviewed. The patient is currently afebrile, hemodynamically stable and maintaining appropriate oxygen saturations on room air. The patient has remained calm overnight on Precedex. Objective Data Objective Data The patient's most recent lab work, culture data and imaging studies have all been personally reviewed. Vital Signs: Vital Signs Temp Pulse Resp BP Pulse Ox 97.8 F 68 18 165/106 H 99 06/20/20 00:00 06/20/20 06:00 06/20/20 06:00 06/20/20 06:00 06/20/20 06:00 Oxygen Delivery Method Room Air Weight: 208 lb 12.444 oz Body Mass Index (BMI) 28.1 Intake & Output: Intake and Output for Last 24 Hours 06/18/20 06/19/20 06/20/20 23:59 23:59 23:59 Intake Total 1443.75 / 1443.75 3130.25 / 3130.25 124.24 / 124.24 Output Total 3186 / 3186 3450 / 3450 Balance -1742.25 / -1742.25 -319.75 / -319.75 124.24 / 124.24 Lab / Micro Data Attestation: I reviewed the patient's lab results. Result Diagrams: 06/20/20 03:10 06/20/20 03:10 Labs: Laboratory Results - last 24 hr 06/19/20 06/19/20 06/19/20 06:21 08:47 08:55 WBC RBC Hgb Hct MCV MCH MCHC RDW Std Deviation RDW Coeff of Bev Plt Count MPV Immature Gran % (Auto) Neut % (Auto) Lymph % (Auto) [place] % (Auto) Eos % (Auto) Baso % (Auto) Absolute Neuts (auto) Absolute Lymphs (auto) Nucleated RBC % Sodium 136 Potassium 3.6 Chloride 102 Carbon Dioxide 26.0 Anion Gap 8 BUN 10 Creatinine 1.20 Estim Creat Clear Calc 83.53 Est GFR (MDRD) Af Amer 83 Est GFR (MDRD) Non-Af 69 BUN/Creatinine Ratio 8.3 L Glucose 203 H Calcium 8.9 Magnesium POC Glucose 158 H 242 H 06/19/20 06/19/20 06/19/20 11:32 17:09 21:10 WBC RBC Hgb Hct MCV MCH MCHC RDW Std Deviation RDW Coeff of Bev Plt Count MPV Immature Gran % (Auto) Neut % (Auto) Lymph % (Auto) [place] % (Auto) Eos % (Auto) Baso % (Auto) Absolute Neuts (auto) Absolute Lymphs (auto) Nucleated RBC % Sodium Potassium Chloride Carbon Dioxide Anion Gap BUN Creatinine Estim Creat Clear Calc Est GFR (MDRD) Af Amer Est GFR (MDRD) Non-Af BUN/Creatinine Ratio Glucose Calcium Magnesium POC Glucose 197 H 152 H 134 H 06/20/20 06/20/20 03:10 03:10 WBC 5.9 RBC 5.36 Hgb 15.8 Hct 48.7 MCV 90.9 MCH 29.5 MCHC 32.4 RDW Std Deviation 43.5 RDW Coeff of Bev 13.0 Plt Count 307 MPV 9.5 Immature Gran % (Auto) 0.200 Neut % (Auto) 50.6 Lymph % (Auto) 35.7 [place] % (Auto) 7.6 Eos % (Auto) 5.2 H Baso % (Auto) 0.7 Absolute Neuts (auto) 3.0 Absolute Lymphs (auto) 2.12 Nucleated RBC % 0 Sodium 139 Potassium 4.2 Chloride 108 H Carbon Dioxide 24.0 Anion Gap 7 BUN 13 Creatinine 1.14 Estim Creat Clear Calc 87.92 Est GFR (MDRD) Af Amer 88 Est GFR (MDRD) Non-Af 73 BUN/Creatinine Ratio 11.4 Glucose 149 H Calcium 8.4 L Magnesium 2.1 POC Glucose Physical Exam Narrative The patient's most recent lab work, culture data and imaging studies have all been personally reviewed. Const no apparent distress General Appearance: lethargic Exam Limitations: altered mental status HEENT normocephalic and head/scalp atraumatic Eyes PERRL Neck supple General: trachea midline Resp normal respiratory effort Auscultation: Negative for rales, rhonchi or wheezes Cardio regular rate, regular rhythm, S1 normal heart sound and S2 normal heart sound GI normal to inspection, nondistended, normoactive bowel sounds Extremity no clubbing, cyanosis or edema Skin no rashes or lesions noted Neuro no focal motor deficits Psych Mood & Affect: flat affect Assessment & Plan Assessment/Plan (1) Alcohol withdrawal: Status: Acute Code(s): F10.239 - Alcohol dependence with withdrawal, unspecified Qualifiers: Complication of substance-induced condition: with delirium Qualified Code(s): F10.231 - Alcohol dependence with withdrawal delirium Plan: RECOMMENDATIONS: 1. Continue to monitor patient per [facility] protocol. 2. Wean patient from Precedex as tolerated. 3. Continue thiamine and folate. 4. Continue bronchodilator and inhaled corticosteroid. IMPRESSIONS: 1. Acute alcohol withdrawal The patient has a longstanding alcohol abuse history and was initially being maintained on a phenobarbital taper. However, the patient subsequently began to refuse to take p.o. medications and developed worsening agitation. He was then transferred to the ICU to be initiated on a Precedex infusion for symptomatic management of his alcohol withdrawal symptoms. Will also plan to continue thiamine and folate as previously ordered. 2. Acute kidney injury Likely prerenal in etiology. Given that the patient is currently n.p.o., supplemental IV fluids will be continued. Continue to monitor urine output. No current indication for renal replacement therapy. 3. History of hypertension/COPD/diabetes mellitus Complicates care, management, recovery and prognosis. Continue home medications as indicated. This note was generated with sciencebite dictation software. It may contain incorrect words, spelling, and punctuation that were not noted in checking the note before signing. Visit Charges Inpatient E&M: 46463 Subs Hosp L3
[2020-06-20] MEDS: 0.9% Normal Saline 1,000 ML 125 ML IV ×3 (06:35→22:07)
--- NOTE | 2020-06-20 07:22 | PCM.PN.HOSP ---
Subjective Subjective: Patient remains in ICU on Precedex drip. Still remains significantly lethargic however awakens to firm sternal rub. Blood glucose levels remain uncontrolled Objective Data Objective Data Vital Signs: Vital Signs Temp Pulse Resp BP Pulse Ox 97.8 F 63 16 156/97 H 99 06/20/20 00:00 06/20/20 07:00 06/20/20 07:00 06/20/20 07:00 06/20/20 07:00 Oxygen Delivery Method Room Air Weight: 208 lb 12.444 oz Body Mass Index (BMI) 28.1 Intake & Output: Intake and Output for Last 24 Hours 06/18/20 06/19/20 06/20/20 23:59 23:59 23:59 Intake Total 1443.75 / 1443.75 3130.25 / 3130.25 1070.44 / 1070.44 Output Total 3186 / 3186 3450 / 3450 Balance -1742.25 / -1742.25 -319.75 / -319.75 1070.44 / 1070.44 Lab / Micro Data Result Diagrams: 06/20/20 03:10 06/20/20 03:10 Labs: Laboratory Results - last 24 hr 06/19/20 06/19/20 06/19/20 08:47 08:55 11:32 WBC RBC Hgb Hct MCV MCH MCHC RDW Std Deviation RDW Coeff of Bev Plt Count MPV Immature Gran % (Auto) Neut % (Auto) Lymph % (Auto) [place] % (Auto) Eos % (Auto) Baso % (Auto) Absolute Neuts (auto) Absolute Lymphs (auto) Nucleated RBC % Sodium 136 Potassium 3.6 Chloride 102 Carbon Dioxide 26.0 Anion Gap 8 BUN 10 Creatinine 1.20 Estim Creat Clear Calc 83.53 Est GFR (MDRD) Af Amer 83 Est GFR (MDRD) Non-Af 69 BUN/Creatinine Ratio 8.3 L Glucose 203 H Calcium 8.9 Magnesium POC Glucose 242 H 197 H 06/19/20 06/19/20 06/20/20 17:09 21:10 03:10 WBC 5.9 RBC 5.36 Hgb 15.8 Hct 48.7 MCV 90.9 MCH 29.5 MCHC 32.4 RDW Std Deviation 43.5 RDW Coeff of Bev 13.0 Plt Count 307 MPV 9.5 Immature Gran % (Auto) 0.200 Neut % (Auto) 50.6 Lymph % (Auto) 35.7 [place] % (Auto) 7.6 Eos % (Auto) 5.2 H Baso % (Auto) 0.7 Absolute Neuts (auto) 3.0 Absolute Lymphs (auto) 2.12 Nucleated RBC % 0 Sodium Potassium Chloride Carbon Dioxide Anion Gap BUN Creatinine Estim Creat Clear Calc Est GFR (MDRD) Af Amer Est GFR (MDRD) Non-Af BUN/Creatinine Ratio Glucose Calcium Magnesium POC Glucose 152 H 134 H 06/20/20 03:10 WBC RBC Hgb Hct MCV MCH MCHC RDW Std Deviation RDW Coeff of Bev Plt Count MPV Immature Gran % (Auto) Neut % (Auto) Lymph % (Auto) [place] % (Auto) Eos % (Auto) Baso % (Auto) Absolute Neuts (auto) Absolute Lymphs (auto) Nucleated RBC % Sodium 139 Potassium 4.2 Chloride 108 H Carbon Dioxide 24.0 Anion Gap 7 BUN 13 Creatinine 1.14 Estim Creat Clear Calc 87.92 Est GFR (MDRD) Af Amer 88 Est GFR (MDRD) Non-Af 73 BUN/Creatinine Ratio 11.4 Glucose 149 H Calcium 8.4 L Magnesium 2.1 POC Glucose Physical Exam Narrative GENERAL: Significantly lethargic HEENT: Atraumatic; EYES; Anicteric, Normal Conjunctiva NECK; supple, normal thyroid, RESPIRATORY: Diminished to auscultation CARDIOVASCULAR: Regular S1 S2, GI: soft, normoactive bowel sounds, : No Renal angle tenderness; EXTREMITIES: No edema, no clubbing, MUSCULOSKELETAL: no muscle waisting NEURO: Lethargic but moving all extremities SKIN: No Rash PSYCH; lethargic Assessment & Plan Assessment/Plan (1) Alcohol withdrawal: Status: Acute Code(s): F10.239 - Alcohol dependence with withdrawal, unspecified Qualifiers: Complication of substance-induced condition: with delirium Qualified Code(s): F10.231 - Alcohol dependence with withdrawal delirium (2) Hypertension: Status: Chronic Code(s): I10 - Essential (primary) hypertension (3) BRIDGER (acute kidney injury): Status: Acute Code(s): N17.9 - Acute kidney failure, unspecified (4) Diabetes mellitus type 2 without retinopathy: Status: Acute Code(s): E11.9 - Type 2 diabetes mellitus without complications Plan: Patient is a 49-year-old gentleman with history of chronic alcohol dependence admitted with acute alcohol withdrawal. Patient was initially admitted to regular nursing floor for medical stabilization however he went into delirium tremens resulting in patient being transferred to the intensive care unit where patient was started on Precedex drip 1. Acute alcohol withdrawal with delirium tremens ?Patient was initially admitted for medical stabilization using phenobarb taper and managed on a regular nursing floor his condition however did worsen resulting in patient being transferred to the intensive care unit with initiation of Precedex drip and consultation placed to telemetry service ?06/20/2020. Patient remains in ICU on Precedex drip 2. Accelerated hypertension ?Did continue patient home medications. Patient blood pressure control still not optimal plan is to adjust home meds with a goal of systolic of 140 and diastolic of 80 -06/20/2020 blood pressure control still not optimal, added hydralazine as needed for systolic blood pressure greater than 160 3. Acute kidney injury ?Patient was managed with hydration patient is on Lasix held on admission with subsequent monitoring of electrolyte -06/20/2020; acute kidney injury resolved 4. Diabetes mellitus type II -patient's oral hypoglycemics held. Placed on long acting insulin, Accu-Cheks a.c. and at bedtime and covered with sliding scale insulin ?06/20/2020 patient blood glucose levels not well controlled subsequent adjustment in his insulin regimen made 5. COPD ?Currently not seen exacerbation however did continue patient home bronchodilator regimen 6. BPH ?Patient is on tamsulosin did continue 7. GERD ?Patient is on PPI continued 8. DVT prophylaxis - On enoxaparin Visit Charges Inpatient E&M: 34910 [facility] L3
[2020-06-20] MEDS: Insulin Lispro 100 UNIT/ML INSULN.PEN SC ×3 (07:50→20:21)
[2020-06-20 07:56] LABS: Bedside Glucose 166 mg/dL (70-110)
--- NOTE | 2020-06-20 10:10 | CASEMGMT ---
This RN CM participated in ICU multidisciplinary rounds. Pt is more calm this am per nursing and they are trying to decreased interaction to decrease agitation. Pt is still on precedex and thiamine/folic acid to be started IV. CM to follow. SStaten RN CM
[2020-06-20] MEDS: 0.9% Saline Lock 10 ML Syringe IV ×2 (10:31→15:57)
[2020-06-20] MEDS: Enoxaparin 40 MG/0.4 ML Syringe SC (10:33)
[2020-06-20 11:35] LABS: Bedside Glucose 143 mg/dL (70-110)
[2020-06-20] MEDS: LORazepam 2 MG/ML Syringe IV ×3 (13:02→17:58)
[2020-06-20] MEDS: Baclofen 10 MG Tablet PO ×3 (13:07→20:09)
[2020-06-20] MEDS: Carvedilol 3.125 MG TABLET PO ×2 (13:07→20:09)
[2020-06-20] MEDS: amLODIPine 10 MG Tablet PO (13:07)
[2020-06-20] MEDS: Tamsulosin HCl 0.4 MG Capsule PO (13:07)
[2020-06-20] MEDS: Albuterol 2.5 MG/3 ML VIAL.NEB. INHALATION ×2 (13:37→19:49)
[2020-06-20] MEDS: Budesonide Respules 0.5 MG/2 ML AMPUL.NEB. INHALATION ×2 (13:37→19:50)
[2020-06-20] MEDS: hydrALAZINE 20 MG/ML Vial 10 MG IV (15:57)
[2020-06-20] MEDS: Labetalol (Prefilled) 20 MG/4 ML 10 MG IV (16:41)
[2020-06-20] MEDS: Gabapentin 600 MG Tablet PO (16:42)
[2020-06-20 16:51] LABS: Bedside Glucose 228 mg/dL (70-110)
[2020-06-20] MEDS: traZODone 100 MG Tablet PO (20:09)
[2020-06-20] MEDS: cloNIDine HCl 0.1 MG Tablet PO (20:09)
[2020-06-20] MEDS: MELATONIN 3 MG TABLET PO (20:09)
[2020-06-20 21:16] LABS: Bedside Glucose 186 mg/dL (70-110)
[2020-06-21] VITALS (24 sets, daily range): BP systolic 96–177; BP diastolic 68–116; PULSE 75–112; RESP 14–20; TEMP 36.4–37.1; O2SAT 96–99
[2020-06-21] MEDS: LORazepam 2 MG/ML Syringe IV ×3 (03:10→21:16)
[2020-06-21 03:39] LABS: Absolute Lymphocyte Count 2.29 X10^3/uL (0.83-4.51); Basophil# 0.04 X10^3/uL; Basophil% 0.5 % (0-1); Eosinophils% 4.1 % (0-5); Hemoglobin 16.7 g/dL (13.0-16.5); Lymphocyte # 2.29 X10^3/ul (0.83-4.51); Lymphocyte % 31.5 % (19-41); Mean Corp Hgb Conc 31.5 g/dL (32-36); Mean Corpuscular Volume 92.2 fL (80-94); Mean Platelet Vol. 9.5 fl (6.2-12.0); Monocyte# 0.62 X10^3/uL; Monocyte% 8.5 % (0-10); NRBC Flagged by Analyzer 0 % (0-5); Neutrophil # 4.01 X10^3/uL (2.7-7.7); Neutrophil % 55.1 % (47-70); Platelet Count 324 K/mm3 (150-450); RBC Distribution Width CV 13.2 % (11.6-14.6); RBC Distribution Width SD 44.8 fl (35.1-43.9); Red Blood Count 5.75 M/mm3 (4.6-6.2); White Blood Count 7.3 K/mm3 (4.4-11.0)
[2020-06-21 03:52] LABS: Anion Gap 4 (5-15); BUN 13 mg/dL (7-18); BUN/Creat Ratio 9.1 RATIO (10-20); Chloride 107 mmol/L (98-107); Creatinine, Serum 1.43 mg/dL (0.70-1.30); EST Glomerular Filtration Rate 56 mL/min (>60); Est Glom Filt Rate - Afr Amer 68 mL/min (>60); Estimated Creatinine Clearance 70.09 ml/min; Glucose 149 mg/dL (74-106); Potassium 4.3 mmol/L (3.5-5.1); Sodium Level 139 mmol/L (136-145)
--- NOTE | 2020-06-21 07:31 | PN.CC_ITS ---
Subjective Subjective: The patient was seen and examined at the bedside this morning. Events from the last 24 hours have been reviewed. The patient is currently afebrile, hemodynamically stable and maintaining appropriate oxygen saturations on room air. The patient remains on Precedex this morning at 0.3. He did receive two doses of ativan overnight. He is certainly more alert and appropriately interactive. CIWA score was last documented to be 4. Objective Data Objective Data The patient's most recent lab work, culture data and imaging studies have all been personally reviewed. Vital Signs: Vital Signs Temp Pulse Resp BP Pulse Ox 97.6 F L 75 16 162/99 H 99 06/21/20 04:00 06/21/20 05:00 06/21/20 05:00 06/21/20 05:00 06/21/20 05:00 Oxygen Delivery Method Room Air Weight: 209 lb 10.554 oz Body Mass Index (BMI) 28.1 Intake & Output: Intake and Output for Last 24 Hours 06/19/20 06/20/20 06/21/20 23:59 23:59 23:59 Intake Total 3130.25 / 3130.25 3655.66 / 3715.66 105.67 / 105.67 Output Total 3450 / 3450 2300 / 2750 450 / 450 Balance -319.75 / -319.75 1355.66 / 965.66 -344.33 / -344.33 Lab / Micro Data Attestation: I reviewed the patient's lab results. Result Diagrams: 06/21/20 03:25 06/21/20 03:25 Labs: Laboratory Results - last 24 hr 06/20/20 06/20/20 06/20/20 07:49 11:22 16:37 WBC RBC Hgb Hct MCV MCH MCHC RDW Std Deviation RDW Coeff of Bev Plt Count MPV Immature Gran % (Auto) Neut % (Auto) Lymph % (Auto) [place] % (Auto) Eos % (Auto) Baso % (Auto) Absolute Neuts (auto) Absolute Lymphs (auto) Nucleated RBC % Sodium Potassium Chloride Carbon Dioxide Anion Gap BUN Creatinine Estim Creat Clear Calc Est GFR (MDRD) Af Amer Est GFR (MDRD) Non-Af BUN/Creatinine Ratio Glucose Calcium POC Glucose 166 H 143 H 228 H 06/20/20 06/21/20 06/21/20 20:20 03:25 03:25 WBC 7.3 RBC 5.75 Hgb 16.7 H Hct 53.0 MCV 92.2 MCH 29.0 MCHC 31.5 L RDW Std Deviation 44.8 H RDW Coeff of Bev 13.2 Plt Count 324 MPV 9.5 Immature Gran % (Auto) 0.300 Neut % (Auto) 55.1 Lymph % (Auto) 31.5 [place] % (Auto) 8.5 Eos % (Auto) 4.1 Baso % (Auto) 0.5 Absolute Neuts (auto) 4.0 Absolute Lymphs (auto) 2.29 Nucleated RBC % 0 Sodium 139 Potassium 4.3 Chloride 107 Carbon Dioxide 28.0 Anion Gap 4 L BUN 13 Creatinine 1.43 H Estim Creat Clear Calc 70.09 Est GFR (MDRD) Af Amer 68 Est GFR (MDRD) Non-Af 56 L BUN/Creatinine Ratio 9.1 L Glucose 149 H Calcium 9.0 POC Glucose 186 H Physical Exam Narrative The patient's most recent lab work, culture data and imaging studies have all been personally reviewed. Const alert and no apparent distress General Appearance: cooperative Exam Limitations: altered mental status HEENT normocephalic and head/scalp atraumatic Eyes PERRL Neck supple General: trachea midline Resp normal respiratory effort Auscultation: Negative for rales, rhonchi or wheezes Cardio regular rate, regular rhythm, S1 normal heart sound and S2 normal heart sound GI normal to inspection, nondistended, normoactive bowel sounds Extremity no clubbing, cyanosis or edema Skin no rashes or lesions noted Neuro CN's II-XII intact bilaterally and no focal motor deficits Psych cooperative Assessment & Plan Assessment/Plan (1) Alcohol withdrawal: Status: Acute Code(s): F10.239 - Alcohol dependence with withdrawal, unspecified Qualifiers: Complication of substance-induced condition: with delirium Qualified Code(s): F10.231 - Alcohol dependence with withdrawal delirium Plan: RECOMMENDATIONS: 1. Continue to monitor patient per CIWA protocol. 2. Wean patient from Precedex as tolerated. 3. If able to be weaned successfully from Precedex this morning, the patient be transferred out of the ICU. 4. Continue thiamine and folate. 5. Continue bronchodilator and inhaled corticosteroid. IMPRESSIONS: 1. Acute alcohol withdrawal The patient has a longstanding alcohol abuse history and was initially being maintained on a phenobarbital taper. However, the patient subsequently began to refuse to take p.o. medications and developed worsening agitation. He was then transferred to the ICU to be initiated on a Precedex infusion for symptomatic management of his alcohol withdrawal symptoms. Will also plan to continue thiamine and folate as previously ordered. 2. Acute kidney injury Likely prerenal in etiology. Given that the patient is currently n.p.o., supplemental IV fluids will be initiated until diet can be advanced. Continue to monitor urine output. No current indication for renal replacement therapy. 3. History of hypertension/COPD/diabetes mellitus Complicates care, management, recovery and prognosis. Continue home medications as indicated. This note was generated with [employer] dictation software. It may contain incorrect words, spelling, and punctuation that were not noted in checking the note before signing. Visit Charges Inpatient E&M: 02512 Subs Hosp L3
[2020-06-21] MEDS: Albuterol 2.5 MG/3 ML VIAL.NEB. INHALATION ×2 (07:37→18:32)
[2020-06-21] MEDS: Budesonide Respules 0.5 MG/2 ML AMPUL.NEB. INHALATION ×2 (07:37→18:32)
[2020-06-21] MEDS: Gabapentin 600 MG Tablet PO ×3 (08:40→16:38)
[2020-06-21] MEDS: Baclofen 10 MG Tablet PO ×4 (08:40→21:16)
[2020-06-21] MEDS: Enoxaparin 40 MG/0.4 ML Syringe SC (08:41)
[2020-06-21] MEDS: Tamsulosin HCl 0.4 MG Capsule PO (08:41)
[2020-06-21] MEDS: Carvedilol 3.125 MG TABLET PO (08:42)
[2020-06-21] MEDS: Pantoprazole Sodium 20 MG Tablet PO (08:42)
[2020-06-21] MEDS: amLODIPine 10 MG Tablet PO (08:42)
[2020-06-21] MEDS: LORazepam 1 MG Tablet 2 MG PO (08:55)
[2020-06-21] MEDS: Acetaminophen 325 MG Tablet 650 MG PO (08:55)
[2020-06-21] MEDS: Dicyclomine 10 MG Capsule 20 MG PO (08:55)
[2020-06-21] MEDS: Insulin Lispro 100 UNIT/ML INSULN.PEN SC ×2 (11:12→16:34)
[2020-06-21 11:25] LABS: Bedside Glucose 232 mg/dL (70-110)
[2020-06-21] MEDS: 0.45% Normal Saline 1,000 ML 125 ML IV ×2 (13:18→17:10)
[2020-06-21] MEDS: 0.9% Saline Lock 10 ML Syringe IV (14:08)
--- NOTE | 2020-06-21 14:12 | PN.HOSP_ITS ---
Subjective Subjective: Patient complain of epigastric abdominal pain, burning in nature. Objective Data Objective Data Vital Signs: Vital Signs Temp Pulse Resp BP Pulse Ox 97.6 F L 79 16 162/99 H 97 06/21/20 04:00 06/21/20 07:40 06/21/20 07:40 06/21/20 05:00 06/21/20 07:40 Oxygen Delivery Method Room Air Weight: 209 lb 10.554 oz Body Mass Index (BMI) 28.1 Intake & Output: Intake and Output for Last 24 Hours 06/19/20 06/20/20 06/21/20 23:59 23:59 23:59 Intake Total 3130.25 / 3130.25 3655.66 / 3715.66 1226.40 / 1226.40 Output Total 3450 / 3450 2300 / 2750 700 / 700 Balance -319.75 / -319.75 1355.66 / 965.66 526.40 / 526.40 Lab / Micro Data Result Diagrams: 06/21/20 03:25 06/21/20 03:25 Labs: Laboratory Results - last 24 hr 06/20/20 06/20/20 06/21/20 16:37 20:20 03:25 WBC 7.3 RBC 5.75 Hgb 16.7 H Hct 53.0 MCV 92.2 MCH 29.0 MCHC 31.5 L RDW Std Deviation 44.8 H RDW Coeff of Bev 13.2 Plt Count 324 MPV 9.5 Immature Gran % (Auto) 0.300 Neut % (Auto) 55.1 Lymph % (Auto) 31.5 [place] % (Auto) 8.5 Eos % (Auto) 4.1 Baso % (Auto) 0.5 Absolute Neuts (auto) 4.0 Absolute Lymphs (auto) 2.29 Nucleated RBC % 0 Sodium Potassium Chloride Carbon Dioxide Anion Gap BUN Creatinine Estim Creat Clear Calc Est GFR (MDRD) Af Amer Est GFR (MDRD) Non-Af BUN/Creatinine Ratio Glucose Calcium POC Glucose 228 H 186 H 06/21/20 06/21/20 03:25 11:10 WBC RBC Hgb Hct MCV MCH MCHC RDW Std Deviation RDW Coeff of Bev Plt Count MPV Immature Gran % (Auto) Neut % (Auto) Lymph % (Auto) [place] % (Auto) Eos % (Auto) Baso % (Auto) Absolute Neuts (auto) Absolute Lymphs (auto) Nucleated RBC % Sodium 139 Potassium 4.3 Chloride 107 Carbon Dioxide 28.0 Anion Gap 4 L BUN 13 Creatinine 1.43 H Estim Creat Clear Calc 70.09 Est GFR (MDRD) Af Amer 68 Est GFR (MDRD) Non-Af 56 L BUN/Creatinine Ratio 9.1 L Glucose 149 H Calcium 9.0 POC Glucose 232 H Physical Exam Narrative General: Alert, Oriented x3, Cooperative, morbid obese BMI 28.4 kg/m? HEENT: Atraumatic, PERRLA, EOMI, Normocephalic Oral: No Gingival or Mucosal Lesions/ Ulcerations Neck: Supple, No JVD, Negative Carotid Bruits Lungs: Air entry diminished in bilateral lung bases. No crepitation/rhonchi Cardiovascular: Regular rate, Regular Rhythm, Normal S1, Normal S2, No murmurs Abdomen: Bowel Sounds Present, Soft, mild deep tenderness present in epigastrium. Non-Distended : No renal angle tenderness. No suprapubic tenderness. Extremities: No edema, Capillary Refill Less than 3 Seconds Skin: No rashes, No breakdown Musculoskeletal: No Tenderness to Palpation of Joints or Extremities Neurological: Cranial nerves II-XII grossly intact, Deep Tendon Reflexes 2+/4 and Symmetrical, Neuro grossly intact Psych/Mental Status: Normal Affect, Appropriate. Assessment & Plan Assessment/Plan (1) Alcohol withdrawal: Status: Acute Code(s): F10.239 - Alcohol dependence with withdrawal, unspecified Qualifiers: Complication of substance-induced condition: with delirium Qualified Code(s): F10.231 - Alcohol dependence with withdrawal delirium (2) Hypertension: Status: Chronic Code(s): I10 - Essential (primary) hypertension (3) BRIDGER (acute kidney injury): Status: Acute Code(s): N17.9 - Acute kidney failure, unspecified (4) Diabetes mellitus type 2 without retinopathy: Status: Acute Code(s): E11.9 - Type 2 diabetes mellitus without complications Plan: Patient is a 49-year-old gentleman with history of chronic alcohol dependence admitted with acute alcohol withdrawal. Patient was initially admitted regular [facility] floor on phenobarbital but he refused to take then went into DT and was transferred to ICU on IV Precedex drip. 1. Acute alcohol withdrawal with delirium tremens: IV Precedex drip is currently being tapered off. 2. Abdominal pain most probably alcoholic gastritis/GERD: PPI increased to 40 mg twice daily. Accelerated hypertension: Blood pressure fluctuates. Currently 162/99. Adjust home medications. 3. Acute kidney injury: BUN/creatinine elevated. On IV fluid 4. Diabetes mellitus type II Placed on long acting insulin, Accu-Cheks a.c. and at bedtime and covered with sliding scale insulin. Glucose around 150 mg/dL 5. COPD ?Currently not seen exacerbation however did continue patient home bronchodilato r regimen 6. BPH ?Patient is on tamsulosin did continue 7. GERD ?Patient is on PPI continued 8. DVT prophylaxis - On enoxaparin Visit Charges Inpatient E&M: 74195 Subs Hosp L3
--- NOTE | 2020-06-21 14:19 | CHAPLAIN ---
Type of Pastoral Visit _x__ Initial Visit ___ Follow-up Visit ___ On-call Visit ___ General Patient Visit ___ Spiritual Assessment ___ Family Conference ___ Bereavement ___ Rapid Response ___ Code Blue ___ Other (describe below) Pastoral Care Referral From _x__ Patient ___ Family ___ Nurse ___ Physician ___ Information Technology Administrator ___ [employer] Special Education Teacher ___ Other (describe below) Sacrament/Intervention _x__ Active listening ___ Anointing ___ Yazidism ___ Bereavement ___ Communion ___ Giselle exploration ___ ___ Life review _x__ Prayer ___ Reconciliation ___ Sacrament of Sick _x__ Supportive presence ___ Wedding ___ Other (describe below) Pastoral Comments patient requests prayer; pt specifically looking for relief from mouth pain; pt says he would like to talk to his who would pray for him also; request made to [employer] for phone call to his
[2020-06-21] MEDS: hydrALAZINE 50 MG Tablet PO ×2 (16:34→21:16)
[2020-06-21 16:40] LABS: Bedside Glucose 251 mg/dL (70-110)
[2020-06-21 17:51] LABS: Bedside Glucose 155 mg/dL (70-110)
[2020-06-21] MEDS: Carvedilol 6.25 MG Tablet PO (21:17)
[2020-06-21] MEDS: Pantoprazole Sodium 40 MG Tablet PO (21:17)
[2020-06-21 21:41] LABS: Bedside Glucose 115 mg/dL (70-110)
[2020-06-22] VITALS (9 sets, daily range): BP systolic 140–170; BP diastolic 72–89; PULSE 95–113; RESP 17–18; TEMP 36.7–37; O2SAT 95–97
[2020-06-22] MEDS: 0.45% Normal Saline 1,000 ML 125 ML IV ×2 (02:44→11:09)
[2020-06-22] MEDS: Insulin Lispro 100 UNIT/ML INSULN.PEN SC ×2 (06:31→11:10)
[2020-06-22] MEDS: hydrALAZINE 50 MG Tablet PO (06:31)
[2020-06-22 06:41] LABS: Bedside Glucose 272 mg/dL (70-110)
[2020-06-22 07:13] LABS: Absolute Lymphocyte Count 1.89 X10^3/uL (0.83-4.51); Absolute Neutrophil Count 5.8 X10^3/uL (2.0-7.7); Basophil# 0.05 X10^3/uL; Basophil% 0.6 % (0-1); Eosinophil# 0.25 X10^3/uL; Eosinophils% 2.8 % (0-5); Hematocrit 50.6 % (40-54); Hemoglobin 16.3 g/dL (13.0-16.5); Lymphocyte # 1.89 X10^3/ul (0.83-4.51); Lymphocyte % 21.4 % (19-41); Mean Corp Hgb Conc 32.2 g/dL (32-36); Mean Corpuscular Hgb 29.3 pg (27.0-32.0); Mean Corpuscular Volume 90.8 fL (80-94); Mean Platelet Vol. 9.1 fl (6.2-12.0); Monocyte# 0.85 X10^3/uL; Monocyte% 9.6 % (0-10); NRBC Flagged by Analyzer 0 % (0-5); Neutrophil # 5.77 X10^3/uL (2.7-7.7); Neutrophil % 65.4 % (47-70); Platelet Count 332 K/mm3 (150-450); RBC Distribution Width CV 12.9 % (11.6-14.6); RBC Distribution Width SD 43.3 fl (35.1-43.9); Red Blood Count 5.57 M/mm3 (4.6-6.2); White Blood Count 8.8 K/mm3 (4.4-11.0)
[2020-06-22] MEDS: Albuterol 2.5 MG/3 ML VIAL.NEB. INHALATION ×3 (07:14→18:59)
[2020-06-22] MEDS: Budesonide Respules 0.5 MG/2 ML AMPUL.NEB. INHALATION ×2 (07:14→18:58)
[2020-06-22 07:42] LABS: Anion Gap 8 (5-15); BUN 15 mg/dL (7-18); BUN/Creat Ratio 8.8 RATIO (10-20); Calcium,Total 8.7 mg/dL (8.5-10.1); Chloride 104 mmol/L (98-107); EST Glomerular Filtration Rate 46 mL/min (>60); Est Glom Filt Rate - Afr Amer 56 mL/min (>60); Estimated Creatinine Clearance 58.96 ml/min; Glucose 313 mg/dL (74-106); Magnesium 1.7 mg/dL (1.6-2.6); Phosphorus 2.9 mg/dL (2.5-4.9); Potassium 3.9 mmol/L (3.5-5.1); Sodium Level 138 mmol/L (136-145)
[2020-06-22] MEDS: Tamsulosin HCl 0.4 MG Capsule PO (07:42)
[2020-06-22] MEDS: Gabapentin 600 MG Tablet PO ×3 (07:42→16:28)
--- NOTE | 2020-06-22 08:51 | CASEMGMT ---
Gisela from [facility] [employer] said she will be in tomorrow to talk with patient. Chanda Hamilton [employer] SET UP OPERATOR CARL
[2020-06-22] MEDS: Pantoprazole Sodium 40 MG Tablet PO (10:23)
[2020-06-22] MEDS: Baclofen 10 MG Tablet PO (10:23)
[2020-06-22] MEDS: Carvedilol 6.25 MG Tablet PO (10:23)
[2020-06-22] MEDS: Enoxaparin 40 MG/0.4 ML Syringe SC (10:23)
[2020-06-22] MEDS: Polyethylene Glycol 3350 17 GM PACKET PO (10:24)
[2020-06-22] MEDS: amLODIPine 10 MG Tablet PO (10:24)
[2020-06-22 11:20] LABS: Bedside Glucose 373 mg/dL (70-110)
[2020-06-22] MEDS: LORazepam 2 MG/ML Syringe IV ×2 (11:38→15:17)
[2020-06-22] MEDS: hydrALAZINE 50 MG Tablet 75 MG PO (13:39)
--- NOTE | 2020-06-22 15:19 | PN.HOSP_ITS ---
Subjective Subjective: No fever chills. Heart rate in 90s. Patient is still looks restless, agitated. Wants to go home. Eyes look red. Objective Data Objective Data Vital Signs: Vital Signs Temp Pulse Resp BP Pulse Ox 98.1 F 99 18 146/88 H 97 06/22/20 13:37 06/22/20 13:39 06/22/20 13:37 06/22/20 13:39 06/22/20 13:37 Oxygen Delivery Method Room Air Weight: 201 lb 8.04 oz Body Mass Index (BMI) 28.1 Intake & Output: Intake and Output for Last 24 Hours 06/20/20 06/21/20 06/22/20 23:59 23:59 23:59 Intake Total 3655.66 / 3715.66 1709.73 / 1709.73 2301.2 / 2301.2 Output Total 2300 / 2750 1600 / 1600 400 / 400 Balance 1355.66 / 965.66 109.73 / 109.73 1901.2 / 1901.2 Lab / Micro Data Result Diagrams: 06/22/20 07:00 06/22/20 07:00 Labs: Laboratory Results - last 24 hr 06/21/20 06/21/20 06/21/20 16:32 17:46 21:19 WBC RBC Hgb Hct MCV MCH MCHC RDW Std Deviation RDW Coeff of Bev Plt Count MPV Immature Gran % (Auto) Neut % (Auto) Lymph % (Auto) [place] % (Auto) Eos % (Auto) Baso % (Auto) Absolute Neuts (auto) Absolute Lymphs (auto) Nucleated RBC % Sodium Potassium Chloride Carbon Dioxide Anion Gap BUN Creatinine Estim Creat Clear Calc Est GFR (MDRD) Af Amer Est GFR (MDRD) Non-Af BUN/Creatinine Ratio Glucose Calcium Phosphorus Magnesium POC Glucose 251 H 155 H 115 H 06/22/20 06/22/20 06/22/20 06:29 07:00 07:00 WBC 8.8 RBC 5.57 Hgb 16.3 Hct 50.6 MCV 90.8 MCH 29.3 MCHC 32.2 RDW Std Deviation 43.3 RDW Coeff of Bev 12.9 Plt Count 332 MPV 9.1 Immature Gran % (Auto) 0.200 Neut % (Auto) 65.4 Lymph % (Auto) 21.4 [place] % (Auto) 9.6 Eos % (Auto) 2.8 Baso % (Auto) 0.6 Absolute Neuts (auto) 5.8 Absolute Lymphs (auto) 1.89 Nucleated RBC % 0 Sodium 138 Potassium 3.9 Chloride 104 Carbon Dioxide 26.0 Anion Gap 8 BUN 15 Creatinine 1.70 H Estim Creat Clear Calc 58.96 Est GFR (MDRD) Af Amer 56 L Est GFR (MDRD) Non-Af 46 L BUN/Creatinine Ratio 8.8 L Glucose 313 H Calcium 8.7 Phosphorus 2.9 Magnesium 1.7 POC Glucose 272 H 06/22/20 11:08 WBC RBC Hgb Hct MCV MCH MCHC RDW Std Deviation RDW Coeff of Bev Plt Count MPV Immature Gran % (Auto) Neut % (Auto) Lymph % (Auto) [place] % (Auto) Eos % (Auto) Baso % (Auto) Absolute Neuts (auto) Absolute Lymphs (auto) Nucleated RBC % Sodium Potassium Chloride Carbon Dioxide Anion Gap BUN Creatinine Estim Creat Clear Calc Est GFR (MDRD) Af Amer Est GFR (MDRD) Non-Af BUN/Creatinine Ratio Glucose Calcium Phosphorus Magnesium POC Glucose 373 H Physical Exam Narrative General: Alert, Oriented x3, Cooperative, morbid obese BMI 28.4 kg/m? HEENT: Atraumatic, PERRLA, EOMI, Normocephalic, no matting or conjunctivitis/purulent discharge Oral: No Gingival or Mucosal Lesions/ Ulcerations Neck: Supple, No JVD, Negative Carotid Bruits Lungs: Air entry diminished in bilateral lung bases. No crepitation/rhonchi Cardiovascular: Regular rate, Regular Rhythm, Normal S1, Normal S2, No murmurs Abdomen: Bowel Sounds Present, Soft, mild deep tenderness present in epigastrium. Non-Distended : No renal angle tenderness. No suprapubic tenderness. Extremities: No edema, Capillary Refill Less than 3 Seconds Skin: No rashes, No breakdown Musculoskeletal: No Tenderness to Palpation of Joints or Extremities Neurological: Cranial nerves II-XII grossly intact, Deep Tendon Reflexes 2+/4 and Symmetrical, Neuro grossly intact Psych/Mental Status: Normal Affect, Appropriate. Assessment & Plan Assessment/Plan (1) Alcohol withdrawal: QUALIFIERS: Complication of substance-induced condition: with delirium Qualified Code(s): F10.231 - Alcohol dependence with withdrawal delirium (2) Hypertension: (3) BRIDGER (acute kidney injury): (4) Diabetes mellitus type 2 without retinopathy: PLAN: Patient is a 49-year-old gentleman with history of chronic alcohol dependence admitted with acute alcohol withdrawal. [facility] but he refused to take then went into DT and was transferred to ICU on IV Precedex drip. 1. Acute alcohol withdrawal with delirium tremens: IV Precedex drip is currently being tapered off. 06/22: Patient was transferred to floor on 06/21. We will start the patient on phenobarbital. 2. Abdominal pain most probably alcoholic gastritis/GERD: PPI increased to 40 mg twice daily. Accelerated hypertension: Blood pressure fluctuates. Currently 162/99. Adjust home medications. 06/22 blood pressure is 146/86. 3. Acute kidney injury: BUN/creatinine elevated. On IV fluid 06/22 creatinine is increasing: Continue IV fluid. 4. Diabetes mellitus type II Placed on long acting insulin, Accu-Cheks a.c. and at bedtime and covered with sliding scale insulin. Glucose around 150 mg/dL 5. COPD ?Currently not seen exacerbation however did continue patient home bronchodilator regimen 6. BPH ?Patient is on tamsulosin did continue 7. GERD ?Patient is on PPI continued 8. DVT prophylaxis - On enoxaparin Laboratory Results 06/21/20 16:32: POC Glucose 251 H 06/21/20 17:46: POC Glucose 155 H 06/21/20 21:19: POC Glucose 115 H 06/22/20 06:29: POC Glucose 272 H 06/22/20 07:00: WBC 8.8, RBC 5.57, Hgb 16.3, Hct 50.6, MCV 90.8, MCH 29.3, MCHC 32.2, RDW Std Deviation 43.3, RDW Coeff of Bev 12.9, Plt Count 332, MPV 9.1, Immature Gran % (Auto) 0.200, Neut % (Auto) 65.4, Lymph % (Auto) 21.4, [place] % (Auto) 9.6, Eos % (Auto) 2.8, Baso % (Auto) 0.6, Absolute Neuts (auto) 5.8, Absolute Lymphs (auto) 1.89, Nucleated RBC % 0 06/22/20 07:00: Sodium 138, Potassium 3.9, Chloride 104, Carbon Dioxide 26.0, Anion Gap 8, BUN 15, Creatinine 1.70 H, Estim Creat Clear Calc 58.96, Est GFR (MDRD) Af Amer 56 L, Est GFR (MDRD) Non-Af 46 L, BUN/Creatinine Ratio 8.8 L, Glucose 313 H, Calcium 8.7, Phosphorus 2.9, Magnesium 1.7 06/22/20 11:08: POC Glucose 373 H Visit Charges Inpatient E&M: 92135 Subs Hosp L2
[2020-06-22 16:40] LABS: Bedside Glucose 126 mg/dL (70-110)
[2020-06-22] MEDS: LORazepam 1 MG Tablet 2 MG PO (18:28)
[2020-06-22] MEDS: cloNIDine HCl 0.2 MG Tablet PO (21:23)
[2020-06-23] VITALS (8 sets, daily range): BP systolic 134–163; BP diastolic 66–137; PULSE 70–96; RESP 16–18; TEMP 36.6–37.2; O2SAT 96–100
[2020-06-23] MEDS: Insulin Lispro 100 UNIT/ML INSULN.PEN SC ×2 (01:09→06:49)
[2020-06-23] MEDS: hydrALAZINE 50 MG Tablet 75 MG PO ×2 (01:12→05:52)
[2020-06-23] MEDS: Carvedilol 12.5 MG Tablet PO ×2 (01:14→09:37)
[2020-06-23] MEDS: Pantoprazole Sodium 40 MG Tablet PO ×2 (01:15→09:37)
[2020-06-23 01:26] LABS: Bedside Glucose 299 mg/dL (70-110)
[2020-06-23] MEDS: hydrOXYzine PAM 25 MG Capsule PO (04:10)
[2020-06-23 07:11] LABS: Bedside Glucose > 500 mg/dL (70-110)
[2020-06-23 07:11] LABS: Bedside Glucose 423 mg/dL (70-110)
[2020-06-23 07:26] LABS: ALB/GLOB Ratio 0.7 RATIO (0.9-2.4); AST(SGOT) 24 U/L (15-37); Alanine Aminotransfer ALT/SGPT 34 U/L (16-61); Albumin, Serum 2.9 g/dL (3.2-5.0); Alkaline Phosphatase 105 U/L (45-117); Anion Gap 5 (5-15); BUN 13 mg/dL (7-18); Calcium,Total 9.1 mg/dL (8.5-10.1); Chloride 103 mmol/L (98-107); Creatinine, Serum 1.85 mg/dL (0.70-1.30); EST Glomerular Filtration Rate 42 mL/min (>60); Est Glom Filt Rate - Afr Amer 50 mL/min (>60); Estimated Creatinine Clearance 54.18 ml/min; Globulin 4.1 g/dL (2.2-4.2); Glucose 369 mg/dL (74-106); Magnesium 1.8 mg/dL (1.6-2.6); Potassium 4.3 mmol/L (3.5-5.1); Sodium Level 136 mmol/L (136-145)
[2020-06-23] MEDS: Gabapentin 600 MG Tablet PO (07:59)
[2020-06-23] MEDS: Tamsulosin HCl 0.4 MG Capsule PO (07:59)
[2020-06-23] MEDS: Thiamine Hydrochloride 100 MG Tablet PO (08:00)
[2020-06-23] MEDS: Folic Acid 1 MG Tablet PO (08:01)
[2020-06-23] MEDS: Enoxaparin 40 MG/0.4 ML Syringe SC (09:35)
[2020-06-23] MEDS: cloNIDine HCl 0.2 MG Tablet PO (09:36)
[2020-06-23] MEDS: amLODIPine 10 MG Tablet PO (09:37)
--- NOTE | 2020-06-23 10:02 | ADDICTION ---
This telegraphic typewriter operator met with PT to complete ASAM, MSE, AUDIT assessments and to plan for d/c. PT A+Ox4 but presented with confusion and was primarily focused on his wanting to custody of his grandson in order to raise him white. This telegraphic typewriter operator had to redirect PT several times in order to complete assessments. PT refused d/c planning stating that I'm not going anywhere after here. This telegraphic typewriter operator provided resources and contact information to PT. PT followed this telegraphic typewriter operator out of his room stating that I'm leaving now.
--- NOTE | 2020-06-23 10:56 | PCM.DC ---
Discharge Instructions Diet Discharge Diet: Low fat / Low cholesterol and 1800 Calorie Control Diet Activity Discharge Activity: May Not Drive Weight Bearing Status: Weight bearing as tolerated Dressing / Incision Call your doctor if you observe: Fever of 101 or Higher, Coldness, Increased Pain, Numbness or Tingling, Change in Color, Inability to urinate, Inability to have a bowel movement, Shortness of breath, Dizziness, Fainting spells, Swelling in the ankles, Chest pain, Prolonged hiccupping, Increased palpitations (irregular heartbeat), Calf discomfort and Uncontrolled pain Follow Up Care Test Results: Test results from this visit will be discussed in further detail at your follow-up appointment, if applicable. Discharge Plan Admission Admit Date/Time: 06/16/20 13:24 Primary Reason for Your Visit: Acute alcoholic withdrawal Attending Provider: Artemio Garcia Primary Care Provider: Michael Ritter Consulting Providers: Matilde [place] ; Rosales Morales ; Vince Babin Instructions Patient Instructions: ED Withdrawal Alcohol Discharge Orders/Prescriptions Prescriptions: New carvedilol 12.5 mg Tablet 12.5 mg PO BID 30 Days Qty: 60 RF: 0 thiamine HCl (vitamin B1) [Vitamin B-1] 100 mg Tablet 100 mg PO DAILYCM 30 Days Qty: 30 RF: 0 amlodipine 10 mg Tablet 10 mg PO DAILY 30 Days Qty: 30 RF: 0 hydralazine 50 mg Tablet 75 mg PO TID 30 Days Qty: 135 RF: 0 folic acid 1 mg tablet 1 mg PO DAILY Qty: 30 RF: 0 Continued hydroxyzine HCl 50 mg Tablet 50 mg PO TID PRN PRN (Reason: osullivan and itching) RF: 0 baclofen 10 mg tablet 10 mg PO 4X/DAY RF: 0 insulin aspart U-100 100 unit/mL solution 20 unit subcut TID RF: 0 gabapentin 300 mg capsule 300 mg PO TID RF: 0 omeprazole 20 mg Capsule,Delayed Release(Dr/Ec) 20 mg PO DAILY RF: 0 Basaglar KwikPen U-100 Insulin 100 unit/mL (3 mL) insulin pen 40 unit SUBCUT QHS RF: 0 gabapentin 600 mg tablet 600 mg PO TID RF: 0 albuterol sulfate 2.5 mg /3 mL (0.083 %) Solution For Nebulization 2.5 mg INHALATION Q4H PRN (Reason: breathing) RF: 0 tamsulosin [Flomax] 0.4 mg Capsule 0.4 mg PO DAILY RF: 0 budesonide-formoterol [Symbicort] 80-4.5 mcg/actuation Hfa Aerosol Inhaler 2 puff INHALATION BID RF: 0 Held lisinopril-hydrochlorothiazide 20-12.5 mg tablet 1 tab PO DAILY RF: 0 Hold Instructions: Hold for 1 week until BMP next week/follow-up PCP furosemide [Lasix] 20 mg Tablet 10 mg PO DAILY RF: 0 Hold Instructions: Hold for 1 week until BMP Referrals / Follow Up: Michael Ritter DO [Primary Care Provider] - Disposition Disposition (needs filled in before D/C Order can be placed): Home, self care
--- NOTE | 2020-06-23 11:05 | DS.PCM_ITS ---
Providers Date of Admission: 06/16/20 Primary Care Physician: Dr. Michael Ritter DO Consultations 06/16/20 17:03 Consult: General Surgery Routine Consulting Provider: Rosales Morales Reason for Consult: eye pain and blurry vision EMERGENT Consult: No Notified: Yes Date Notified:: 06/16/20 Time Notified: 17:04 Method of Notification: Cheryl spoke with 06/17/20 15:11 Consult: Addiction Medicine Routine Consulting Provider: Matilde [place] Reason for Consult: Alcohol abuse EMERGENT Consult: No Notified: Yes Date Notified:: 06/17/20 Time Notified: 12:37 Method of Notification: Answering Service Reason for Consult: Alcohol abuse EMERGENT Consult: No Notified: Yes Date Notified:: 06/17/20 Time Notified: 12:37 Method of Notification: Answering Service 06/19/20 14:21 Consult: Personnel Adviser / Pulmonary Medicine Routine Consulting Provider: Vince Babin Reason for Consult: ICU transfer/alcohol withdraw EMERGENT Consult: No Notified: Yes Date Notified:: 06/19/20 Time Notified: 07:00 Method of Notification: Verbal Reason For Visit: DIZZINESS AND ETOH ABUSE WITH BRIDGER Diagnosis Discharge Diagnosis (1) Alcohol withdrawal: Status: Acute Code(s): F10.239 - Alcohol dependence with withdrawal, unspecified Qualifiers: Complication of substance-induced condition: with delirium Qualified Code(s): F10.231 - Alcohol dependence with withdrawal delirium (2) Hypertension: Status: Chronic Code(s): I10 - Essential (primary) hypertension (3) BRIDGER (acute kidney injury): Status: Acute Code(s): N17.9 - Acute kidney failure, unspecified (4) Diabetes mellitus type 2 without retinopathy: Status: Acute Code(s): E11.9 - Type 2 diabetes mellitus without complications Medications at Discharge Home Medications Basaglar KwikPen U-100 Insulin 40 unit SUBCUT QHS 06/16/20 albuterol sulfate 2.5 mg INHALATION Q4H PRN 06/16/20 baclofen 10 mg PO 4X/DAY 06/16/20 budesonide-formoterol [Symbicort] 2 puff INHALATION BID 06/16/20 furosemide [Lasix] 10 mg PO DAILY 06/16/20 gabapentin 300 mg PO TID 06/16/20 gabapentin 600 mg PO TID 06/16/20 hydroxyzine HCl 50 mg PO TID PRN PRN 06/16/20 insulin aspart U-100 20 unit SUBCUT TID 06/16/20 lisinopril-hydrochlorothiazide 1 tab PO DAILY 06/16/20 omeprazole 20 mg PO DAILY 06/16/20 tamsulosin [Flomax] 0.4 mg PO DAILY 06/16/20 amlodipine 10 mg PO DAILY 30 Days #30 tab 06/23/20 carvedilol 12.5 mg PO BID 30 Days #60 tab 06/23/20 folic acid 1 mg PO DAILY #30 tab 06/23/20 hydralazine 75 mg PO TID 30 Days #135 tab 06/23/20 thiamine HCl (vitamin B1) [Vitamin B-1] 100 mg PO DAILYCM 30 Days #30 tab 06/23/20 Hospital Course Summary of Care Provided Hospital Course: Patient is a 49-year-old gentleman with history of chronic alcohol dependence admitted with acute alcohol withdrawal. [facility] but he refused to take then went into DT and was transferred to ICU on IV Precedex drip. 1. Acute alcohol withdrawal with delirium tremens: IV Precedex drip is currently being tapered off. Patient was transferred to floor on 06/21 and on phenobarbital. Patient responded well and alert and oriented x3. Patient discharged home. 2. Abdominal pain most probably alcoholic gastritis/GERD: PPI increased to 40 mg twice daily. Accelerated hypertension: Blood pressure fluctuates. Currently 162/99. Adjust home medications. blood pressure is controlled 3. Acute kidney injury: BUN/creatinine elevated. On IV fluid BUN/creatinine increased. Patient did not had good response with IV fluid. Lasix, lisinopril and HCTZ on hold patient advised to follow with PCP in 1 week. 4. Diabetes mellitus type II Placed on long acting insulin, Accu-Cheks a.c. and at bedtime and covered with sliding scale insulin. Glucose is uncontrolled. 5. COPD ?Currently not seen exacerbation however did continue patient home bronchodilator regimen 6. BPH ?Patient is on tamsulosin did continue 7. GERD ?Patient is on PPI continued 8. DVT prophylaxis - On enoxaparin Patient did not stay longer to collect his discharge instruction and medications but nursing staff called patient's to come and warehouse order picker discharge instruction and follow-up instructions. Discharge medication reconciliation done. Discharge follow-up instructions completed. Discharge process discussed with the patient and all questions were answered to patient's satisfaction. Patient needs to follow-up PCP in 1 week and BMP to follow-up with kidney function and good concordance controlled. Patient is noncompliant. Total time spent, exact 35 minutes on discharge meds reconciliation, examination, coordination of care with nurses and ancillary staff, review of imaging and blood test and discussion with the patient on follow-up instructions Physical Exam Narrative Patient is more awake and alert and oriented x3. Patient wants to go home today. Heart rate and blood pressure control. Patient was started on low-dose of phenobarbital and he seems more stable. General: Alert, Oriented x3, Cooperative, morbid obese BMI 28.4 kg/m? HEENT: Atraumatic, PERRLA, EOMI, Normocephalic, no matting or conjunctivitis/purulent discharge Oral: Dental caries. Neck: Supple, No JVD, Negative Carotid Bruits Lungs: Air entry equal in bilateral lung bases. No crepitation/rhonchi Cardiovascular: Regular rate, Regular Rhythm, Normal S1, Normal S2, No murmurs Abdomen: Bowel Sounds Present, Soft, mild deep tenderness present in epigastr ium. Non-Distended : No renal angle tenderness. No suprapubic tenderness. Extremities: No edema, Capillary Refill Less than 3 Seconds Skin: No rashes, No breakdown Musculoskeletal: No Tenderness to Palpation of Joints or Extremities Neurological: Cranial nerves II-XII grossly intact, Deep Tendon Reflexes 2+/4 and Symmetrical, Neuro grossly intact Psych/Mental Status: Normal Affect, Appropriate. ABG / Lab / Microbiology Data Result Diagrams: 06/22/20 07:00 06/23/20 06:36 Laboratory: Laboratory Results - last 24 hr 06/22/20 06/22/20 06/23/20 11:08 16:29 01:08 Sodium Potassium Chloride Carbon Dioxide Anion Gap BUN Creatinine Estim Creat Clear Calc Est GFR (MDRD) Af Amer Est GFR (MDRD) Non-Af BUN/Creatinine Ratio Glucose Calcium Magnesium Total Bilirubin AST ALT Alkaline Phosphatase Total Protein Albumin Globulin Albumin/Globulin Ratio POC Glucose 373 H 126 H 299 H 06/23/20 06/23/20 06/23/20 06:36 06:45 06:47 Sodium 136 Potassium 4.3 Chloride 103 Carbon Dioxide 28.0 Anion Gap 5 BUN 13 Creatinine 1.85 H Estim Creat Clear Calc 54.18 Est GFR (MDRD) Af Amer 50 L Est GFR (MDRD) Non-Af 42 L BUN/Creatinine Ratio 7.0 L Glucose 369 H Calcium 9.1 Magnesium 1.8 Total Bilirubin 0.40 AST 24 ALT 34 Alkaline Phosphatase 105 Total Protein 7.0 Albumin 2.9 L Globulin 4.1 Albumin/Globulin Ratio 0.7 L POC Glucose > 500 H* 423 H D/C Instructions Discharge Diet: Low fat / Low cholesterol and 1800 Calorie Control Diet Discharge Activity: May Not Drive Weight Bearing Status: Weight bearing as tolerated Call your doctor if you observe: Fever of 101 or Higher, Coldness, Increased Pain, Numbness or Tingling, Change in Color, Inability to urinate, Inability to have a bowel movement, Shortness of breath, Dizziness, Fainting spells, Swelling in the ankles, Chest pain, Prolonged hiccupping, Increased palpitations (irregular heartbeat), Calf discomfort and Uncontrolled pain Meaningful Use Info Meaningful Use Diagnoses (Choose all that apply): None applicable Discharge Plan Admission Admit Date/Time: 06/16/20 13:24 Primary Reason for Your Visit: Acute alcoholic withdrawal Attending Provider: Artemio Garcia Primary Care Provider: Michael Ritter Consulting Providers: Matilde [place] ; Rosales Morales ; Vince Babin Instructions Patient Instructions: Acute Kidney Failure, ED Withdrawal Alcohol Additional Instructions / Restrictions: Advised to follow-up with PCP in 1 week BMP Discharge Orders/Prescriptions Prescriptions: New carvedilol 12.5 mg Tablet 12.5 mg PO BID 30 Days Qty: 60 RF: 0 thiamine HCl (vitamin B1) [Vitamin B-1] 100 mg Tablet 100 mg PO DAILYCM 30 Days Qty: 30 RF: 0 amlodipine 10 mg Tablet 10 mg PO DAILY 30 Days Qty: 30 RF: 0 hydralazine 50 mg Tablet 75 mg PO TID 30 Days Qty: 135 RF: 0 folic acid 1 mg tablet 1 mg PO DAILY Qty: 30 RF: 0 Continued hydroxyzine HCl 50 mg Tablet 50 mg PO TID PRN PRN (Reason: osullivan and itching) RF: 0 baclofen 10 mg tablet 10 mg PO 4X/DAY RF: 0 insulin aspart U-100 100 unit/mL solution 20 unit subcut TID RF: 0 gabapentin 300 mg capsule 300 mg PO TID RF: 0 omeprazole 20 mg Capsule,Delayed Release(Dr/Ec) 20 mg PO DAILY RF: 0 Basaglar BryanikPen U-100 Insulin 100 unit/mL (3 mL) insulin pen 40 unit SUBCUT QHS RF: 0 gabapentin 600 mg tablet 600 mg PO TID RF: 0 albuterol sulfate 2.5 mg /3 mL (0.083 %) Solution For Nebulization 2.5 mg INHALATION Q4H PRN (Reason: breathing) RF: 0 tamsulosin [Flomax] 0.4 mg Capsule 0.4 mg PO DAILY RF: 0 budesonide-formoterol [Symbicort] 80-4.5 mcg/actuation Hfa Aerosol Inhaler 2 puff INHALATION BID RF: 0 Held lisinopril-hydrochlorothiazide 20-12.5 mg tablet 1 tab PO DAILY RF: 0 Hold Instructions: Hold for 1 week until BMP next week/follow-up PCP furosemide [Lasix] 20 mg Tablet 10 mg PO DAILY RF: 0 Hold Instructions: Hold for 1 week until BMP Referrals / Follow Up: Michael Ritter DO [Primary Care Provider] - (BMP in 1 week to follow-up kidney function. Lisinopril, HCTZ and Lasix on hold.) Disposition Disposition (needs filled in before D/C Order can be placed): Home, self care Visit Charges Inpatient E&M: 78161 Disch Hosp
== END 2020-06-23 11:15 | disposition home or self-care (01) | DRG 897 ==
LOC: ED 14:00 → ICU 06-19 07:26 → MS3 06-19 14:50 → ICU 06-21 07:19 → PCU 06-22 09:14
PROVIDERS: Internal Medicine; Physician Assistant; Admitting Provider Family Medicine; Emergency Provider Emergency Medicine; PCP Family Medicine; Visit Provider Internal Medicine
DX: F10.231 Alcohol dependence with withdrawal delirium (principal); N17.9 Acute kidney failure, unspecified; S05.8X1A Other injuries of right eye and orbit, initial encounter; E11.40 Type 2 diabetes mellitus with diabetic neuropathy, unspecified; W22.8XXA Striking against or struck by other objects, initial encounter; Y93.9 Activity, unspecified; Y92.511 Restaurant or cafe as the place of occurrence of the external cause; E86.0 Dehydration; F17.200 Nicotine dependence, unspecified, uncomplicated; F32.9 Major depressive disorder, single episode, unspecified; F41.9 Anxiety disorder, unspecified; G89.29 Other chronic pain; H35.033 Hypertensive retinopathy, bilateral; H54.61 Unqualified visual loss, right eye, normal vision left eye; I16.0 Hypertensive urgency; I10 Essential (primary) hypertension; J44.9 Chronic obstructive pulmonary disease, unspecified; R10.13 Epigastric pain; K21.9 Gastro-esophageal reflux disease without esophagitis; K29.20 Alcoholic gastritis without bleeding; G40.909 Epilepsy, unspecified, not intractable, without status epilepticus; M48.02 Spinal stenosis, cervical region; N40.0 Benign prostatic hyperplasia without lower urinary tract symptoms; Z79.4 Long term (current) use of insulin; Z79.899 Other long term (current) drug therapy; Z87.820 Personal history of traumatic brain injury
CPT/HCPCS: 36415; 70450; 72125; 80048; 80053; 81001; 82077; 82962; 83690; 83735; 84100; 84484; 85025; 93005; 94640; 97110; 97116; 97162; 97166; 97530; 97535; 99285; J7030; A4216; J2405; J3490

== ENCOUNTER 2020-08-26 11:31 | Emergency (ER) | payer MEDICARE, SELFPAY ==
[2020-06-16 15:39] VITALS: BMI 28.1
[2020-08-26 11:32] VITALS: BP 143/89; PULSE 104; RESP 16; TEMP 36.6; O2SAT 98; BMI 28.3
--- NOTE | 2020-08-26 12:08 | EX.ED.DYSGE1 ---
HPI History of Present Illness Chief Complaint: Other, Pain/Inj Narrative Narrative: Patient presenting with left ear pain. He states he thought there was a foreign body in his ear so he used a Q-tip to vigorously try to get this out. He has been having pain in the ear for several days now. He denies fever or chills. He denies nausea or vomiting. He states that his left ear feels like it is ringing somewhat and he has pain when he moves his ear. 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) Home Medications Basaglar KwikPen U-100 Insulin 40 unit SUBCUT QHS 06/16/20 [History Last Taken 06/15/20] albuterol sulfate 2.5 mg INHALATION Q4H PRN 06/16/20 [History Last Taken 1 Month Ago ~05/16/20] baclofen 10 mg PO 4X/DAY 06/16/20 [History Last Taken 06/14/20] budesonide-formoterol [Symbicort] 2 puff INHALATION BID 06/16/20 [History Last Taken 06/14/20] furosemide [Lasix] 10 mg PO DAILY 06/16/20 [History Last Taken Unknown] gabapentin 300 mg PO TID 06/16/20 [History Last Taken 06/14/20] gabapentin 600 mg PO TID 06/16/20 [History Last Taken 06/14/20] hydroxyzine HCl 50 mg PO TID PRN PRN 06/16/20 [History Last Taken 1 Month Ago ~05/16/20] insulin aspart U-100 20 unit SUBCUT TID 06/16/20 [History Last Taken 06/14/20] lisinopril-hydrochlorothiazide 1 tab PO DAILY 06/16/20 [History Last Taken 06/15/20] omeprazole 20 mg PO DAILY 06/16/20 [History Last Taken 06/15/20] tamsulosin [Flomax] 0.4 mg PO DAILY 06/16/20 [History Last Taken Unknown] amlodipine 10 mg PO DAILY 30 Days #30 tab 06/23/20 [Rx Last Taken Unknown] carvedilol 12.5 mg PO BID 30 Days #60 tab 06/23/20 [Rx Last Taken Unknown] folic acid 1 mg PO DAILY #30 tab 06/23/20 [Rx Last Taken Unknown] hydralazine 75 mg PO TID 30 Days #135 tab 06/23/20 [Rx Last Taken Unknown] thiamine HCl (vitamin B1) [Vitamin B-1] 100 mg PO DAILYCM 30 Days #30 tab 06/23/20 [Rx Last Taken Unknown] pczhkyea-cfsagcuvc-YM 4 drp EACH EAR Q8H 10 Days #10 ml 08/26/20 [Rx Last Taken Unknown] Allergy/AdvReac Type Severity Reaction Status Date / Time egg AdvReac Nausea/Vom/ Verified 08/26/20 11:35 Diarrhea Social History Smoking Status: Current every day smoker ROS ROS ED Constitutional Constitutional ED: Denies chills or fever(s) Eyes Eyes: Denies blurry vision or change in vision ENT ENT ED: Reports ear pain left Cardiovascular Cardiovascular: Denies chest pain or palpitations Respiratory/Chest Respiratory/Chest: Denies cough or dyspnea Gastrointestinal Gastrointestinal: Denies abdominal pain, nausea or vomiting Genitourinary Genitourinary ED: Denies dysuria or hematuria Musculoskeletal Musculoskeletal: Denies arthralgias or myalgias Integumentary Denies abscess or rash Neurologic Neurologic: Denies headache(s), paresthesias or weakness Psychiatric Psychiatric: Denies anxiety or depression EXAM Physical Exam Const Vital Signs: 08/26/20 11:32 Temperature 98 F Temperature Source Temporal Pulse Rate 104 H Respiratory Rate 16 Blood Pressure 143/89 H Blood Pressure Mean 107 Pulse Ox 98 Oxygen Delivery Method Room Air Positive well nourished General Appearance ED: NAD HEENT Negative for trauma Tympanic Membrane ED: Yes TM's clear left (Left TM is visible although there is a small piece of cerumen deep in the ear. The eardrum does not appear to be erythematous or bulging. The ear canal is diffusely erythematous. There is pain with movement of the tragus.) Eyes PERRL and EOMs intact bilaterally Neck no lymphadenopathy and supple Resp normal respiratory effort and clear to auscultation bilaterally Cardio regular rate and regular rhythm Neuro oriented x3 and CN's II-XII intact bilaterally Sensorium / Orientation: alert Psych mental status grossly normal Skin no rashes or lesions noted and no wounds MDM MDM MDM Narrative Medical decision making narrative: Patient has left otitis media. He is counseled to stop sticking things in his ear as he has been doing this all week. He will be started on Cortisporin otic. He is given follow-up with ENT. Patient counseled on return precautions. He is stable for discharge. Impression: 1. Left otitis media Discharge Plan Triage Chief Complaint: Other, Pain/Inj ED Provider: Poncho Perrin Dx/Rx/DC Orders Instructions: ED External Ear Infection (Adult) Prescriptions: New hrgcphrd-ejjmkwwub-IH 3.5-10,000-1 mg/mL-unit/mL-% solution 4 drp EACH EAR Q8H 10 Days Qty: 10 RF: 0 No Action lisinopril-hydrochlorothiazide 20-12.5 mg tablet 1 tab PO DAILY RF: 0 Hold Instructions: Hold for 1 week until BMP next week/follow-up PCP hydroxyzine HCl 50 mg Tablet 50 mg PO TID PRN PRN (Reason: osullivan and itching) RF: 0 baclofen 10 mg tablet 10 mg PO 4X/DAY RF: 0 insulin aspart U-100 100 unit/mL solution 20 unit subcut TID RF: 0 gabapentin 300 mg capsule 300 mg PO TID RF: 0 omeprazole 20 mg Capsule,Delayed Release(Dr/Ec) 20 mg PO DAILY RF: 0 furosemide [Lasix] 20 mg Tablet 10 mg PO DAILY RF: 0 Hold Instructions: Hold for 1 week until BMP Basaglar KwikPen U-100 Insulin 100 unit/mL (3 mL) insulin pen 40 unit SUBCUT QHS RF: 0 gabapentin 600 mg tablet 600 mg PO TID RF: 0 albuterol sulfate 2.5 mg /3 mL (0.083 %) Solution For Nebulization 2.5 mg INHALATION Q4H PRN (Reason: breathing) RF: 0 tamsulosin [Flomax] 0.4 mg Capsule 0.4 mg PO DAILY RF: 0 budesonide-formoterol [Symbicort] 80-4.5 mcg/actuation Hfa Aerosol Inhaler 2 puff INHALATION BID RF: 0 carvedilol 12.5 mg Tablet 12.5 mg PO BID 30 Days Qty: 60 RF: 0 thiamine HCl (vitamin B1) [Vitamin B-1] 100 mg Tablet 100 mg PO DAILYCM 30 Days Qty: 30 RF: 0 amlodipine 10 mg Tablet 10 mg PO DAILY 30 Days Qty: 30 RF: 0 hydralazine 50 mg Tablet 75 mg PO TID 30 Days Qty: 135 RF: 0 folic acid 1 mg tablet 1 mg PO DAILY Qty: 30 RF: 0 Primary Care Provider: Michael Ritter Referrals: Eddie Philippe MD [STAFF PHYSICIAN] - As soon as possible Michael Ritter DO [Primary Care Provider] - Disposition Disposition: Home, Self Care
[2020-08-26] MEDS: Neomycin/Polymyxin/Dexameth 5ML OPTH.BTL 4 DRP OTIC (12:21)
[2020-08-26] MEDS: Ibuprofen 600 MG Tablet PO (12:31)
[2020-08-26 12:32] VITALS: RESP 16
--- NOTE | 2020-08-26 12:33 | ED.RN ---
REVIEWED D/C INSTRUCTIONS, FOLLOW UP CARE, PRESCRIPTION, AND S/S THAT WOULD WARRANT A RETURN TO THE ED WITH PT. PT VERBALIZED AN UNDERSTANDING AND DENIES FURTHER QUESTIONS FOR THIS RN. PT SKIN WARM/DRY, RESP EVEN AND UNLABORED, PT A&O X 3, NO DISTRESS NOTED. PT AMBULATED OUT OF ED, GAIT STEADY.
== END 2020-08-26 12:34 | disposition home or self-care (01) ==
PROVIDERS: Emergency Provider Student in an Organized Health Care Education/Training Program; PCP Family Medicine
DX: H66.92 Otitis media, unspecified, left ear (principal); I10 Essential (primary) hypertension; E11.40 Type 2 diabetes mellitus with diabetic neuropathy, unspecified; F32.9 Major depressive disorder, single episode, unspecified; F41.9 Anxiety disorder, unspecified; G89.29 Other chronic pain; J44.9 Chronic obstructive pulmonary disease, unspecified; I25.2 Old myocardial infarction; H54.61 Unqualified visual loss, right eye, normal vision left eye; G40.909 Epilepsy, unspecified, not intractable, without status epilepticus; Z79.4 Long term (current) use of insulin; Z79.899 Other long term (current) drug therapy; F17.200 Nicotine dependence, unspecified, uncomplicated
CPT/HCPCS: 99283

== ENCOUNTER → 2020-08-30 11:28 | Outpatient (CLI) | payer MEDICARE, SELFPAY ==
[2020-08-26 11:32] VITALS: BMI 28.3
[2020-08-30 12:22] LABS: ALB/GLOB Ratio 0.8 RATIO (0.9-2.4); AST(SGOT) 15 U/L (15-37); Alanine Aminotransfer ALT/SGPT 13 U/L (16-61); Albumin, Serum 3.1 g/dL (3.2-5.0); Alkaline Phosphatase 89 U/L (45-117); Anion Gap 4 (5-15); BUN 19 mg/dL (7-18); BUN/Creat Ratio 10.1 RATIO (10-20); Calcium,Total 9.1 mg/dL (8.5-10.1); Chloride 105 mmol/L (98-107); Creatinine, Serum 1.88 mg/dL (0.70-1.30); EST Glomerular Filtration Rate 41 mL/min (>60); Est Glom Filt Rate - Afr Amer 50 mL/min (>60); Globulin 3.8 g/dL (2.2-4.2); Glucose 237 mg/dL (74-106); Potassium 4.3 mmol/L (3.5-5.1); Protein, Total 6.9 g/dL (6.4-8.2); Sodium Level 137 mmol/L (136-145)
== END ==
PROVIDERS: PCP Family Medicine; Referring Provider Family Medicine; Visit Provider Family Medicine
DX: I10 Essential (primary) hypertension (principal)
CPT/HCPCS: 36415; 80053

== ENCOUNTER 2020-10-24 05:59 | Emergency (ER) | payer MEDICARE, SELFPAY ==
[2020-10-24 05:59] VITALS: BP 161/107; PULSE 81; RESP 18; TEMP 36.4; O2SAT 100; BMI 26.8
[2020-10-24 06:05] VITALS: BP 161/107; PULSE 81; RESP 18; TEMP 36.4; O2SAT 100
--- NOTE | 2020-10-24 06:25 | RAD_ITS ---
STUDY: X-RAY CHEST REASON FOR EXAM: Male, 50 years old. Cough TECHNIQUE: AP COMPARISON: None. FINDINGS: The lungs are clear and expanded. There is no demonstrated pleural abnormality. Normal size heart. Normal mediastinum and eder. Normal visualized pulmonary arteries. Normal visualized aortic arch and descending thoracic aorta. Normal visualized ribs, clavicles, and shoulders. There is no demonstrated abnormality of the visualized soft tissue structures of the upper abdomen. Neurostimulator wires project over the lower thoracic spine. Status post cervical spinal fixation. RAD/Chest 1 View (Portable) IMPRESSION: Negative x-ray examination of the chest. Electronically Signed: Joshua Bain MD at 7:46 EDT Tel , Service support ,
[2020-10-24] MEDS: Ondansetron 4 MG/2 ML Vial IV ×2 (06:42→07:45)
[2020-10-24] MEDS: Ketorolac 15 MG/ML Vial IV (06:42)
[2020-10-24] MEDS: 0.9% Normal Saline 1,000 ML 1000 ML IV (06:44)
[2020-10-24 06:48] LABS: Absolute Lymphocyte Count 1.25 X10^3/uL (0.83-4.51); Absolute Neutrophil Count 5.1 X10^3/uL (2.0-7.7); Basophil# 0.08 X10^3/uL; Basophil% 1.1 % (0-1); Eosinophil# 0.19 X10^3/uL; Eosinophils% 2.7 % (0-5); Hematocrit 53.2 % (40-54); Hemoglobin 16.8 g/dL (13.0-16.5); Lymphocyte # 1.25 X10^3/ul (0.83-4.51); Lymphocyte % 17.9 % (19-41); Mean Corp Hgb Conc 31.6 g/dL (32-36); Mean Corpuscular Hgb 29.9 pg (27.0-32.0); Mean Corpuscular Volume 94.7 fL (80-94); Mean Platelet Vol. 10.1 fl (6.2-12.0); Monocyte# 0.36 X10^3/uL; Monocyte% 5.2 % (0-10); NRBC Flagged by Analyzer 0 % (0-5); Neutrophil # 5.08 X10^3/uL (2.7-7.7); Neutrophil % 72.8 % (47-70); Platelet Count 340 K/mm3 (150-450); RBC Distribution Width SD 45.2 fl (35.1-43.9); Red Blood Count 5.62 M/mm3 (4.6-6.2)
[2020-10-24 07:03] LABS: ALB/GLOB Ratio 0.7 RATIO (0.9-2.4); AST(SGOT) 27 U/L (15-37); Alanine Aminotransfer ALT/SGPT 27 U/L (16-61); Albumin, Serum 3.4 g/dL (3.2-5.0); Alkaline Phosphatase 96 U/L (45-117); Anion Gap 8 (5-15); BUN 15 mg/dL (7-18); BUN/Creat Ratio 8.8 RATIO (10-20); Calcium,Total 9.7 mg/dL (8.5-10.1); Chloride 106 mmol/L (98-107); Creatinine, Serum 1.71 mg/dL (0.70-1.30); EST Glomerular Filtration Rate 46 mL/min (>60); Est Glom Filt Rate - Afr Amer 55 mL/min (>60); Estimated Creatinine Clearance 57.99 ml/min; Globulin 4.7 g/dL (2.2-4.2); Glucose 218 mg/dL (74-106); Lipase 173 U/L (73-393); Potassium 4.1 mmol/L (3.5-5.1); Protein, Total 8.1 g/dL (6.4-8.2); Sodium Level 139 mmol/L (136-145)
--- NOTE | 2020-10-24 07:38 | CT_ITS ---
EXAM: CT ABDOMEN AND PELVIS WITHOUT INTRAVENOUS CONTRAST : 1970 CLINICAL INDICATION: abdominal pain TECHNIQUE: Helically acquired images were obtained of the abdomen and pelvis without intravenous contrast. This CT exam was performed using one or more of the following dose reduction techniques: automated exposure control, adjustment of the mA and/or kV according to patient size, and/or use of iterative reconstruction technique. This report was created using Sape report generation technology. COMPARISON: None. FINDINGS: LOWER THORAX: Unremarkable. Lung bases are clear. No cardiomegaly. No significant pericardial effusion. ABDOMEN: LIVER: Unremarkable. Homogeneous. GALLBLADDER AND BILE DUCTS: There are surgical clips from a cholecystectomy. No intra- or extrahepatic biliary ductal dilation. PANCREAS: Unremarkable. No focal cystic mass. SPLEEN: Unremarkable. Normal size without focal cystic or solid mass. ADRENALS: Unremarkable. No nodules. KIDNEYS AND URETERS: Unremarkable. Normal renal size and position. No hydronephrosis. STOMACH AND BOWEL: There is sigmoid diverticulosis with no evidence of diverticulitis. No stomach or bowel distention. PELVIS: APPENDIX: No evidence of acute appendicitis. BLADDER: Unremarkable. REPRODUCTIVE: Unremarkable as visualized. No mass. ABDOMEN and PELVIS: INTRAPERITONEAL SPACE: Unremarkable. No ascites or other fluid collection. No free air. BONES/JOINTS: There is beam hardening artifact from right hip prosthesis. No suspicious lytic or blastic abnormality. SOFT TISSUES: There is next over the upper anterior abdomen from a ventral hernia repair. VASCULATURE: Unremarkable. Abdominal aorta is non-dilated. LYMPH NODES: Unremarkable. No enlarged lymph nodes. TUBES, LINES AND DEVICES: There is a battery pack over the right flank with leads extending into the mid thoracic spinal canal. CT/Abdomen/Pelvis without Cont IMPRESSION: No acute findings in the abdomen or pelvis. Individualized dose optimization techniques were used for this CT. at 0835 Reported and signed by: Diego Cardona MD Electronically Signed: Diego Cardona MD at 8:34 EDT Tel , Service support ,
--- NOTE | 2020-10-24 07:41 | EDS_ITS ---
HPI History of Present Illness Chief Complaint: Nausea/Vomiting/Diarrhea Narrative Narrative: Patient presenting for evaluation secondary to generalized illness. Patient states over the course the last 3 days he has been having chills, fatigue, nausea vomiting diarrhea. He states that his emesis is nonbloody nonbilious. He states that his diarrhea is loose and watery nonbloody nonmucousy. Ports that he is getting some crampy abdominal pain associated with this. Patient does state that he has a mild cough and sore throat associated with it, he feels as if he is somewhat dehydrated. Patient does have some sick contacts all with similar symptoms. Reports that he called his primary care doctor who called him in a [facility] and he is on day 3 but is not feeling any better so the patient is presenting for further evaluation in the emergency department. 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) Home Medications Basaglar KwikPen U-100 Insulin 40 unit SUBCUT QHS 06/16/20 [History Last Taken 06/15/20] albuterol sulfate 2.5 mg INHALATION Q4H PRN 06/16/20 [History Last Taken 1 Month Ago ~05/16/20] baclofen 10 mg PO 4X/DAY 06/16/20 [History Last Taken 06/14/20] budesonide-formoterol [Symbicort] 2 puff INHALATION BID 06/16/20 [History Last Taken 06/14/20] furosemide [Lasix] 10 mg PO DAILY 06/16/20 [History Last Taken Unknown] gabapentin 300 mg PO TID 06/16/20 [History Last Taken 06/14/20] gabapentin 600 mg PO TID 06/16/20 [History Last Taken 06/14/20] hydroxyzine HCl 50 mg PO TID PRN PRN 06/16/20 [History Last Taken 1 Month Ago ~05/16/20] insulin aspart U-100 20 unit SUBCUT TID 06/16/20 [History Last Taken 06/14/20] lisinopril-hydrochlorothiazide 1 tab PO DAILY 06/16/20 [History Last Taken 06/15/20] omeprazole 20 mg PO DAILY 06/16/20 [History Last Taken 06/15/20] tamsulosin [Flomax] 0.4 mg PO DAILY 06/16/20 [History Last Taken Unknown] amlodipine 10 mg PO DAILY 30 Days #30 tab 06/23/20 [Rx Last Taken Unknown] carvedilol 12.5 mg PO BID 30 Days #60 tab 06/23/20 [Rx Last Taken Unknown] folic acid 1 mg PO DAILY #30 tab 06/23/20 [Rx Last Taken Unknown] hydralazine 75 mg PO TID 30 Days #135 tab 06/23/20 [Rx Last Taken Unknown] thiamine HCl (vitamin B1) [Vitamin B-1] 100 mg PO DAILYCM 30 Days #30 tab 06/23/20 [Rx Last Taken Unknown] zezxmflu-bqqwhclbk-MR 4 drp EACH EAR Q8H 10 Days #10 ml 08/26/20 [Rx Last Taken Unknown] Allergy/AdvReac Type Severity Reaction Status Date / Time egg AdvReac Nausea/Vom/ Verified 08/26/20 11:35 Diarrhea Social History Smoking Status: Current every day smoker tobacco type: cigarettes ROS ROS ED Constitutional Constitutional ED: Reports fever(s) ENT ENT ED: Reports sore throat Cardiovascular Cardiovascular: Denies chest pain Respiratory/Chest Respiratory/Chest: Reports cough Gastrointestinal Gastrointestinal: Reports abdominal pain, diarrhea, nausea and vomiting Genitourinary Genitourinary ED: Denies dysuria or hematuria Musculoskeletal Musculoskeletal: Denies back pain Integumentary Denies rash Neurologic Neurologic: Denies paresthesias or weakness Psychiatric Psychiatric: Denies depression Endocrine Endocrinology: Denies fatigue Allergic/Immunologic Allergic/Immunologic ED: Denies urticaria EXAM Physical Exam Const Vital Signs: 10/24/20 05:59 10/24/20 06:05 Temperature 97.6 F L 97.6 F L Temperature Source Temporal Temporal Pulse Rate 81 81 Respiratory Rate 18 18 Blood Pressure 161/107 H 161/107 H Blood Pressure Mean 125 125 Pulse Ox 100 100 Oxygen Delivery Method Room Air Room Air Positive well nourished and well developed General Appearance ED: well developed and NAD HEENT Reports dry mucous membranes Negative for trauma or tenderness Mouth ED: Yes dry mucous membranes Mouth: dry mucous membranes Eyes EOMs intact bilaterally Neck no lymphadenopathy, supple and no JVD Neck Narrative: Old tracheostomy scar is noted Chest Wall inspection of chest normal Resp normal respiratory effort and clear to auscultation bilaterally Cardio regular rate, regular rhythm, no murmurs and peripheral pulses 2+ throughout GI normal to inspection, nondistended, normoactive bowel sounds and no masses GI Narrative: Diffuse nonlocalizing tenderness palpation no guarding or rebound. Large midline abdominal surgical scar is well-healed. Palpation: soft Back/Spine normal to inspection Extremity normal to inspection General Extremety ED: Negative for tenderness Neuro oriented x3 and no sensory deficits noted Sensorium / Orientation: alert Motor Exam: strength 5/5 throughout Psych mental status grossly normal Skin no rashes or lesions noted MDM MDM MDM Narrative Medical decision making narrative: Patient presented secondary to generalized illness. An IV was tablets patient was given IV fluids, Zofran, and Toradol. Chest x-ray by my personal review shows no signs of discrete infiltrate. CBC shows some hemoconcentration hemoglobin at 16.8 with some lymphocyte suppression and elevated neutrophils. Chemistry shows the patient's creatinine to be at baseline at 1.7 no significant electrolyte derangements, sugar was high at 218 liver panel unremarkable lipase was negative. Repeat evaluation of the patient shows him to have continued abdominal pain. His coronavirus test was noted to be negative. I ordered the patient morphine and Zofran, and given the fact that the patient has history of multiple abdominal surgeries secondary to a trauma in the past and he has persistent abdominal pain I did order CT imaging of the patient's abdomen and pelvis. Patient this point will be signed out to the oncoming physician who will follow up on imaging and disposition the patient. Lab Data Labs: Laboratory Results - last 24 hr 10/24/20 10/24/20 06:41 06:41 WBC 7.0 RBC 5.62 Hgb 16.8 H Hct 53.2 MCV 94.7 H MCH 29.9 MCHC 31.6 L RDW Std Deviation 45.2 H RDW Coeff of Bev 13.0 Plt Count 340 MPV 10.1 Immature Gran % (Auto) 0.300 Neut % (Auto) 72.8 H Lymph % (Auto) 17.9 L Hooker % (Auto) 5.2 Eos % (Auto) 2.7 Baso % (Auto) 1.1 H Absolute Neuts (auto) 5.1 Absolute Lymphs (auto) 1.25 Nucleated RBC % 0 Sodium 139 Potassium 4.1 Chloride 106 Carbon Dioxide 25.0 Anion Gap 8 BUN 15 Creatinine 1.71 H Estim Creat Clear Calc 57.99 Est GFR (MDRD) Af Amer 55 L Est GFR (MDRD) Non-Af 46 L BUN/Creatinine Ratio 8.8 L Glucose 218 H Calcium 9.7 Total Bilirubin 0.70 AST 27 ALT 27 Alkaline Phosphatase 96 Total Protein 8.1 Albumin 3.4 Globulin 4.7 H Albumin/Globulin Ratio 0.7 L Lipase 173 Discharge Plan Triage Chief Complaint: Nausea/Vomiting/Diarrhea ED Provider: Leighton Mason Dx/Rx/DC Orders Clinical Impression: Abdominal pain, vomiting, and diarrhea, CKD (chronic kidney disease) Instructions: ED Gastroenteritis, Viral (Adult) Prescriptions: No Action lisinopril-hydrochlorothiazide 20-12.5 mg tablet 1 tab PO DAILY RF: 0 Hold Instructions: Hold for 1 week until BMP next week/follow-up PCP hydroxyzine HCl 50 mg Tablet 50 mg PO TID PRN PRN (Reason: osullivan and itching) RF: 0 baclofen 10 mg tablet 10 mg PO 4X/DAY RF: 0 insulin aspart U-100 100 unit/mL solution 20 unit subcut TID RF: 0 gabapentin 300 mg capsule 300 mg PO TID RF: 0 omeprazole 20 mg Capsule,Delayed Release(Dr/Ec) 20 mg PO DAILY RF: 0 furosemide [Lasix] 20 mg Tablet 10 mg PO DAILY RF: 0 Hold Instructions: Hold for 1 week until BMP Basaglar KwikPen U-100 Insulin 100 unit/mL (3 mL) insulin pen 40 unit SUBCUT QHS RF: 0 gabapentin 600 mg tablet 600 mg PO TID RF: 0 albuterol sulfate 2.5 mg /3 mL (0.083 %) Solution For Nebulization 2.5 mg INHALATION Q4H PRN (Reason: breathing) RF: 0 tamsulosin [Flomax] 0.4 mg Capsule 0.4 mg PO DAILY RF: 0 budesonide-formoterol [Symbicort] 80-4.5 mcg/actuation Hfa Aerosol Inhaler 2 puff INHALATION BID RF: 0 carvedilol 12.5 mg Tablet 12.5 mg PO BID 30 Days Qty: 60 RF: 0 thiamine HCl (vitamin B1) [Vitamin B-1] 100 mg Tablet 100 mg PO DAILYCM 30 Days Qty: 30 RF: 0 amlodipine 10 mg Tablet 10 mg PO DAILY 30 Days Qty: 30 RF: 0 hydralazine 50 mg Tablet 75 mg PO TID 30 Days Qty: 135 RF: 0 folic acid 1 mg tablet 1 mg PO DAILY Qty: 30 RF: 0 bsnyaila-knxtrqjmf-KG 3.5-10,000-1 mg/mL-unit/mL-% solution 4 drp EACH EAR Q8H 10 Days Qty: 10 RF: 0 Primary Care Provider: Michael Ritter Referrals: Michael Ritter DO [Primary Care Provider] -
[2020-10-24] MEDS: Morphine 4 MG/ML Syringe IV (07:46)
[2020-10-24] MEDS: Metoclopramide 10 MG/2 ML Vial IV (10:01)
[2020-10-24] MEDS: DiphenhydrAMINE 50 MG/ML Syringe 25 MG IV (10:02)
[2020-10-24] MEDS: Dicyclomine 20 MG/2 ML Vial IM (10:04)
[2020-10-24 11:31] VITALS: BP 178/87; PULSE 80; RESP 18; O2SAT 98
--- NOTE | 2020-10-24 11:33 | ED.RN ---
500 ml IV saline infused at dc
== END 2020-10-24 11:34 | disposition home or self-care (01) ==
PROVIDERS: Emergency Medicine; Emergency Provider Emergency Medicine; PCP Family Medicine
DX: R10.9 Unspecified abdominal pain (principal); R11.0 Nausea; R19.7 Diarrhea, unspecified; R68.83 Chills (without fever); R53.83 Other fatigue; R05 Cough; J02.9 Acute pharyngitis, unspecified; I25.2 Old myocardial infarction; E11.22 Type 2 diabetes mellitus with diabetic chronic kidney disease; I12.9 Hypertensive chronic kidney disease with stage 1 through stage 4 chronic kidney disease, or unspecified chronic kidney disease; N18.9 Chronic kidney disease, unspecified; E11.40 Type 2 diabetes mellitus with diabetic neuropathy, unspecified; F32.9 Major depressive disorder, single episode, unspecified; F41.9 Anxiety disorder, unspecified; G89.29 Other chronic pain; H54.61 Unqualified visual loss, right eye, normal vision left eye; J44.9 Chronic obstructive pulmonary disease, unspecified; G40.909 Epilepsy, unspecified, not intractable, without status epilepticus; Z79.4 Long term (current) use of insulin; Z79.899 Other long term (current) drug therapy; F17.210 Nicotine dependence, cigarettes, uncomplicated
CPT/HCPCS: 71045; 74176; 80053; 83690; 85025; 87426; 96361; 96372; 96374; 96375; 96376; 99283; J7030; A4216; J2405

== ENCOUNTER 2021-04-19 11:44 | Emergency (ER) | payer MEDICARE, MEDICAID, SELFPAY ==
[2021-04-19 11:45] VITALS: BP 192/111; PULSE 94; RESP 16; TEMP 35.8; O2SAT 99; BMI 26.9
--- NOTE | 2021-04-19 11:50 | RAD_ITS ---
STUDY: X-RAY - LEFT SHOULDER REASON FOR EXAM: Male, 50 years old. FALL. LEFT SHOULDER PAIN. SURGERY SEVERAL YEARS AGO. TECHNIQUE: 2 view(s) of the shoulder. COMPARISON: Chest x-ray dated November 03, 2020 FINDINGS: Stable intramedullary javy and healed fracture deformity of the left humerus. No acute fracture is seen. Stable cervical spine hardware. The glenohumeral articulation is mildly narrowed. Normal acromioclavicular joint. Normal acromion. The soft tissue structures are unremarkable. Normal visualized pulmonary apex. RAD/Shoulder min 2 Views IMPRESSION: 1. Stable intramedullary javy and healed fracture deformity of the left humerus. No acute fracture is seen. Stable cervical spine hardware. Electronically Signed: Tanner Nunez MD at 12:22 EST ,
--- NOTE | 2021-04-19 13:46 | CT_ITS ---
STUDY: CT BRAIN WITHOUT CONTRAST REASON FOR EXAM: Male, 50 years old. Head injury due to a fall. RADIATION DOSAGE (If Supplied By Facility): CTDIvol = ( 44.99 ) mGy, DLP = ( 779.24 ) mGycm TECHNIQUE: Transaxial CT imaging of the brain was performed without administration of intravenous contrast material. Individualized dose optimization techniques were used for this CT. COMPARISON: Comparison is made with prior study dated 06/17/2020. FINDINGS: Normal soft tissue structures. Normal calvarium. Normal size ventricles and extra-axial spaces for the patient''s age. Normal white matter tracts of the cerebral hemispheres. Normal basal ganglia and thalami. Normal brainstem. Normal cerebellum. There is no intracranial hemorrhage. There are no findings of an acute ischemic infarction. Normal visualized paranasal sinuses. CT/Brain/Head without Contrast IMPRESSION: Normal unenhanced CT scan of the brain. Electronically Signed: Dominick Fernandez MD at 14:34 EST ,
--- NOTE | 2021-04-19 13:46 | CT_ITS ---
STUDY: CT CERVICAL SPINE WITHOUT CONTRAST REASON FOR EXAM: Male, 50 years old. FALL X2 DAYS AGO HX-ETOH ABUSE,CKD,DIAB,HTN RADIATION DOSAGE (If Supplied By Facility): CTDIvol = ( 23.76 ) mGy, DLP = ( 446.28 ) mGycm TECHNIQUE: High resolution transaxial imaging was performed without contrast material. Sagittal and coronal images were reconstructed. Individualized dose optimization techniques were used for this CT. COMPARISON: CT of the cervical spine dated JUNE 16, 2020 FINDINGS: Normal craniovertebral junction. Normal anterior atlantoaxial articulation. Normal odontoid process. There is reversal of the normal cervical lordosis. No visualized acute fracture or compression deformity. Cortical plate-screw construct and chronic osseous fusion noted at the C5-C6 level. Unfused corticated ossicle at the tip of the C6 spinous process which is either a developmental defect or sequela from old trauma. Moderate central canal stenosis with cord compression demonstrated at C3-C4 and C4-C5 due to large disc osteophyte complexes. Multilevel degenerative changes are present. Normal visualized soft tissue structures. CT/Spine Cervical without Contras IMPRESSION: 1. No significant interval change from the prior study of JUNE 16, 2020. 2. Multilevel degenerative changes, as described above. Electronically Signed: Tanner Nunez MD at 14:43 EST ,
[2021-04-19] MEDS: Diphth,Pertuss(Acell),Tet Vac 0.5 ML Vial IM (13:58)
[2021-04-19] MEDS: oxyCODONE 5 MG Tablet PO (13:59)
--- NOTE | 2021-04-19 14:24 | EX.ED.UPPERE ---
HPI History of Present Illness Chief Complaint: Upper Extremity Injury Narrative Narrative: 50-year-old male presenting with mild headache neck pain and left shoulder pain. He states that he fell down about 8 steps a few days ago. He was told that he was out for about a minute. He had trouble sleeping the first night but has not had severe headache, blurry vision that is new, unstable gait. Is not vomiting. He is not on blood thinners. He states that his left arm hurts and is able to abduct his arm above the level of his shoulder. Denies elbow pain or wrist pain. He states he has chronic neck pain that he believes is unchanged. Patient relates that [facility] Medical History Alcohol abuse Alcohol abuse Anxiety Chronic pain COPD (chronic obstructive pulmonary disease) Depression Diabetes Hypertension Kidney disease Myocardial infarct Neuropathy Seizures Smoker Substance abuse Vision loss of right eye (~06/14/20) Home Medications Basaglar KwikPen U-100 Insulin 40 unit SUBCUT QHS 06/16/20 [History Last Taken 06/15/20] albuterol sulfate 2.5 mg INHALATION Q4H PRN 06/16/20 [History Last Taken 1 Month Ago ~05/16/20] baclofen 10 mg PO 4X/DAY 06/16/20 [History Last Taken 06/14/20] budesonide-formoterol [Symbicort] 2 puff INHALATION BID 06/16/20 [History Last Taken 06/14/20] furosemide [Lasix] 10 mg PO DAILY 06/16/20 [History Last Taken Unknown] gabapentin 300 mg PO TID 06/16/20 [History Last Taken 06/14/20] gabapentin 600 mg PO TID 06/16/20 [History Last Taken 06/14/20] hydroxyzine HCl 50 mg PO TID PRN PRN 06/16/20 [History Last Taken 1 Month Ago ~05/16/20] insulin aspart U-100 20 unit SUBCUT TID 06/16/20 [History Last Taken 06/14/20] lisinopril-hydrochlorothiazide 1 tab PO DAILY 06/16/20 [History Last Taken 06/15/20] omeprazole 20 mg PO DAILY 06/16/20 [History Last Taken 06/15/20] tamsulosin [Flomax] 0.4 mg PO DAILY 06/16/20 [History Last Taken Unknown] amlodipine 10 mg PO DAILY 30 Days #30 tab 06/23/20 [Rx Last Taken Unknown] carvedilol 12.5 mg PO BID 30 Days #60 tab 06/23/20 [Rx Last Taken Unknown] folic acid 1 mg PO DAILY #30 tab 06/23/20 [Rx Last Taken Unknown] hydralazine 75 mg PO TID 30 Days #135 tab 06/23/20 [Rx Last Taken Unknown] thiamine HCl (vitamin B1) [Vitamin B-1] 100 mg PO DAILYCM 30 Days #30 tab 06/23/20 [Rx Last Taken Unknown] pbhsugff-pipkkvtok-RC 4 drp EACH EAR Q8H 10 Days #10 ml 08/26/20 [Rx Last Taken Unknown] dicyclomine 20 mg PO BID #10 tab 10/24/20 [Rx Last Taken Unknown] ondansetron 4 mg PO Q8H #10 tab 10/24/20 [Rx Last Taken Unknown] hydrocodone-acetaminophen 1 tab PO Q6H PRN 3 Days #12 tab 04/19/21 [Rx Last Taken Unknown] Allergy/AdvReac Type Severity Reaction Status Date / Time egg AdvReac Nausea/Vom/ Verified 08/26/20 11:35 Diarrhea Social History Smoking Status: Current every day smoker tobacco type: cigarettes ROS ROS ED Constitutional Constitutional ED: Denies chills or fever(s) Eyes Eyes: Denies blurry vision or change in vision ENT ENT ED: Denies rhinorrhea or sore throat Cardiovascular Cardiovascular: Denies chest pain or palpitations Respiratory/Chest Respiratory/Chest: Denies cough or dyspnea Gastrointestinal Gastrointestinal: Denies abdominal pain, nausea or vomiting Genitourinary Genitourinary ED: Denies dysuria or hematuria Musculoskeletal Musculoskeletal: Reports neck pain and other Details: Left shoulder pain Integumentary Denies abscess or rash Neurologic Neurologic: Reports headache(s); Denies paresthesias or weakness Psychiatric Psychiatric: Denies anxiety or depression EXAM Physical Exam Const Vital Signs: 04/19/21 11:45 04/19/21 13:03 Temperature 96.5 F L Temperature Source Temporal Pulse Rate 94 Respiratory Rate 16 Respiratory Effort Normal Non-Labored Respiratory Depth Normal Respiratory Pattern Normal Blood Pressure 192/111 H Blood Pressure Mean 138 Pulse Ox 99 Oxygen Delivery Method Room Air Room Air Positive well nourished General Appearance ED: NAD HEENT HEENT Narrative: Small superficial laceration to the forehead which is not bleeding and is healing. normocephalic Eyes PERRL and EOMs intact bilaterally Neck No full ROM and No supple Neck Narrative: There is diffuse tenderness to the cervical spine musculature without midline focal tenderness. Chest Wall inspection of chest normal Resp normal respiratory effort and clear to auscultation bilaterally Cardio regular rate and regular rhythm Extremity Extremity Narrative: Tenderness palpation of the left shoulder girdle. Patient able to extend his shoulder forward but is not able to abduct the shoulder above the level of the shoulder. No obvious deformity. Neuro oriented x3, CN's II-XII intact bilaterally, moves all extremities, no focal motor deficits and no sensory deficits noted Sensorium / Orientation: alert Psych mental status grossly normal Skin Skin Narrative: As described above MDM MDM MDM Narrative Medical decision making narrative: Patient had a mechanical fall a couple of days ago. He has a superficial abrasion to the left forehead. This is healing and not bleeding. It is too late to suture. He does need tetanus update and this will be done. Patient does relate that he was knocked out after he fell on the stairs and he has chronic neck pain but he does have hardware in his neck. For this reason I will obtain a CT of the head and neck. Patient's left shoulder x-ray interpreted by myself shows no acute fracture or subluxation. He does have an exam consistent with a torn rotator cuff which will need follow-up with orthopedics. He states his last orthopedic surgeon was not in town. He will be provided orthopedic follow-up. Impression: 1. Mechanical fall 2. Closed head injury 3. Cervical strain 4. Left rotator cuff tear Radiography Diagnostic Testing: Clinical Impression(s) from Imaging Studies Shoulder X-Ray 04/19/21 11:50 IMPRESSION: 1. Stable intramedullary javy and healed fracture deformity of the left humerus. No acute fracture is seen. Stable cervical spine hardware. Electronically Signed: Tanner Nunez MD at 12:22 EST Reading Location ID and State: [address] [place] [address] , Service support , Discharge Plan Triage Chief Complaint: Upper Extremity Injury ED Provider: Poncho Perrin Dx/Rx/DC Orders Instructions: ED Abrasion, ED Head Injury (Adult), ED Rotator Cuff Tear Prescriptions: New hydrocodone-acetaminophen 5-325 mg tablet 1 tab PO Q6H PRN (Reason: pain) 3 Days Qty: 12 RF: 0 No Action lisinopril-hydrochlorothiazide 20-12.5 mg tablet 1 tab PO DAILY RF: 0 Hold Instructions: Hold for 1 week until BMP next week/follow-up PCP hydroxyzine HCl 50 mg Tablet 50 mg PO TID PRN PRN (Reason: osullivan and itching) RF: 0 baclofen 10 mg tablet 10 mg PO 4X/DAY RF: 0 insulin aspart U-100 100 unit/mL solution 20 unit subcut TID RF: 0 gabapentin 300 mg capsule 300 mg PO TID RF: 0 omeprazole 20 mg Capsule,Delayed Release(Dr/Ec) 20 mg PO DAILY RF: 0 furosemide [Lasix] 20 mg Tablet 10 mg PO DAILY RF: 0 Hold Instructions: Hold for 1 week until BMP Basaglar KwikPen U-100 Insulin 100 unit/mL (3 mL) insulin pen 40 unit SUBCUT QHS RF: 0 gabapentin 600 mg tablet 600 mg PO TID RF: 0 albuterol sulfate 2.5 mg /3 mL (0.083 %) Solution For Nebulization 2.5 mg INHALATION Q4H PRN (Reason: breathing) RF: 0 tamsulosin [Flomax] 0.4 mg Capsule 0.4 mg PO DAILY RF: 0 budesonide-formoterol [Symbicort] 80-4.5 mcg/actuation Hfa Aerosol Inhaler 2 puff INHALATION BID RF: 0 carvedilol 12.5 mg Tablet 12.5 mg PO BID 30 Days Qty: 60 RF: 0 thiamine HCl (vitamin B1) [Vitamin B-1] 100 mg Tablet 100 mg PO DAILYCM 30 Days Qty: 30 RF: 0 amlodipine 10 mg Tablet 10 mg PO DAILY 30 Days Qty: 30 RF: 0 hydralazine 50 mg Tablet 75 mg PO TID 30 Days Qty: 135 RF: 0 folic acid 1 mg tablet 1 mg PO DAILY Qty: 30 RF: 0 aldejnwa-gdhlxsarm-WM 3.5-10,000-1 mg/mL-unit/mL-% solution 4 drp EACH EAR Q8H 10 Days Qty: 10 RF: 0 ondansetron 4 mg tablet,disintegrating 4 mg PO Q8H Qty: 10 RF: 0 dicyclomine 20 mg tablet 20 mg PO BID Qty: 10 RF: 0 Primary Care Provider: Michael Ritter Referrals: Michael Ritter DO [Primary Care Provider] - Disposition Disposition: Home, Self Care Discharge Date/Time: 04/19/21 15:40
[2021-04-19 14:50] VITALS: BP 155/104; PULSE 73; RESP 16; O2SAT 100
== END 2021-04-19 15:40 | disposition home or self-care (01) ==
PROVIDERS: Emergency Provider Student in an Organized Health Care Education/Training Program; PCP Family Medicine; Visit Provider Student in an Organized Health Care Education/Training Program
DX: S46.012A Strain of muscle(s) and tendon(s) of the rotator cuff of left shoulder, initial encounter (principal); J44.9 Chronic obstructive pulmonary disease, unspecified; E11.40 Type 2 diabetes mellitus with diabetic neuropathy, unspecified; Z79.4 Long term (current) use of insulin; S16.1XXA Strain of muscle, fascia and tendon at neck level, initial encounter; S01.81XA Laceration without foreign body of other part of head, initial encounter; S00.81XA Abrasion of other part of head, initial encounter; W10.9XXA Fall (on) (from) unspecified stairs and steps, initial encounter; Y93.9 Activity, unspecified; Y92.9 Unspecified place or not applicable; G89.29 Other chronic pain; I10 Essential (primary) hypertension; F41.9 Anxiety disorder, unspecified; I25.2 Old myocardial infarction; Z79.899 Other long term (current) drug therapy; F17.210 Nicotine dependence, cigarettes, uncomplicated; Z23 Encounter for immunization
CPT/HCPCS: 70450; 72125; 73030; 90471; 90715; 99283

== ENCOUNTER 2021-05-19 18:07 | Emergency (ER) | payer MEDICARE, MEDICAID, SELFPAY ==
[2021-05-19 18:08] VITALS: BP 170/109; PULSE 100; RESP 24; TEMP 36.6; O2SAT 96; BMI 28.5
--- NOTE | 2021-05-19 18:25 | CT_ITS ---
STUDY: CT BRAIN WITHOUT CONTRAST REASON FOR EXAM: Male, 50 years old. Off balance RADIATION DOSAGE (If Supplied By Facility): CTDIvol = ( 44.99 ) mGy, DLP = ( 849.54 ) mGycm TECHNIQUE: Transaxial CT imaging of the brain was performed without administration of intravenous contrast material. Individualized dose optimization techniques were used for this CT. COMPARISON: 04/19/2021 FINDINGS: Normal soft tissue structures. Normal calvarium. Normal size ventricles and extra-axial spaces for the patient''s age. Normal white matter tracts of the cerebral hemispheres. Normal basal ganglia and thalami. Normal brainstem. Normal cerebellum. There is no intracranial hemorrhage. There are no findings of an acute ischemic infarction. Normal visualized paranasal sinuses. CT/Brain/Head without Contrast IMPRESSION: Normal unenhanced CT scan of the brain. Electronically Signed: Michael Medley DO at 20:22 EDT ,
--- NOTE | 2021-05-19 18:26 | CT_ITS ---
STUDY: CT ABDOMEN AND PELVIS WITH CONTRAST REASON FOR EXAM: Male, 50 years old. Trauma RADIATION DOSAGE (If Supplied By Facility): CTDIvol = ( 13.97 ) mGy, DLP = ( 1109.82 ) mGycm TECHNIQUE: Transaxial images were obtained from the dome of the diaphragm to the symphysis pubis without oral contrast. IV 100mL Isovue-370 was administered. Sagittal and coronal images were reconstructed. Individualized dose optimization techniques were used for this CT. COMPARISON: 10/24/2020. FINDINGS: The visualized lung bases are unremarkable. The visualized portions of the heart are within normal limits. Normal liver. Status post cholecystectomy. No significant dilatation of the extrahepatic biliary system. Normal spleen. Normal pancreas. Normal bilateral adrenal glands. Normal right kidney. Normal left kidney. Normal visualized stomach. Normal small intestine. Mild diverticulosis of the colon. The appendix is visualized and appears normal. Normal abdominal aorta. Normal inferior vena cava. Normal retroperitoneum. Normal urinary bladder. Normal abdominal wall. Right hip prosthesis and previous ORIF left femur causing artifact limiting some lower pelvic images. Degenerative vertebral changes. Stimulator electrodes at the lower thoracic levels. Old fractures of the left transverse processes in the lumbar column. Fractures of the left 10th through 12th ribs. CT/Abdomen/Pelvis W IV Cont ONLY IMPRESSION: Multiple acute left lower rib fractures. Mild colonic diverticulosis. Old fractures of the left transverse processes in the lumbar region. Electronically Signed: Michael Medley DO at 20:52 EDT ,
--- NOTE | 2021-05-19 18:27 | ED.VIS.FALL ---
HPI HPI - Fall History of Present Illness Chief Complaint: Fall Informant: patient Occured/Mechanism Occurred: Today and Hours Mechanism/Context: Yes same level fall Usually ambulates: Without assistance Pain/Injury Pain Location: chest, pelvis and back Quality of Pain: Sharp Current Severity: Moderate Maximum Severity: Moderate Associated Symptoms Associated Symptoms: Negative for Parasthesias, Weakness, Loss of function, Inability to ambulate, Loss of consciousness and Amnesia Narrative Narrative: 50-year-old male extensive past medical history of CKD, COPD, diabetes, hypertension, and alcohol abuse. Today reported he was getting in the bathtub slipped lost his balance fell injuring his left lateral rib cage and back and flank on the side of the tub. States he broke the porcelain. Is complaining of significant left flank pain. Denies any LOC. Does not believe he hit his head. He states though he has had trouble with his balance the last 6 to 8 months. He has had no evaluation for this. He denies any nausea, vomiting or fever. He did have diarrhea several days ago. Denies any melena. Prior similar symptoms: No Recent Illness/Hospitalization: No PFSH PFSH Medical History Alcohol abuse Alcohol abuse Anxiety Chronic pain COPD (chronic obstructive pulmonary disease) Depression Diabetes Hypertension Kidney disease Myocardial infarct Neuropathy Seizures Smoker Substance abuse Vision loss of right eye (~06/14/20) Home Medications Basaglar KwikPen U-100 Insulin 40 unit SUBCUT QHS 06/16/20 [History Last Taken 06/15/20] albuterol sulfate 2.5 mg INHALATION Q4H PRN 06/16/20 [History Last Taken 1 Month Ago ~05/16/20] baclofen 10 mg PO 4X/DAY 06/16/20 [History Last Taken 06/14/20] budesonide-formoterol [Symbicort] 2 puff INHALATION BID 06/16/20 [History Last Taken 06/14/20] furosemide [Lasix] 10 mg PO DAILY 06/16/20 [History Last Taken Unknown] gabapentin 300 mg PO TID 06/16/20 [History Last Taken 06/14/20] gabapentin 600 mg PO TID 06/16/20 [History Last Taken 06/14/20] hydroxyzine HCl 50 mg PO TID PRN PRN 06/16/20 [History Last Taken 1 Month Ago ~05/16/20] insulin aspart U-100 20 unit SUBCUT TID 06/16/20 [History Last Taken 06/14/20] lisinopril-hydrochlorothiazide 1 tab PO DAILY 06/16/20 [History Last Taken 06/15/20] omeprazole 20 mg PO DAILY 06/16/20 [History Last Taken 06/15/20] tamsulosin [Flomax] 0.4 mg PO DAILY 06/16/20 [History Last Taken Unknown] amlodipine 10 mg PO DAILY 30 Days #30 tab 06/23/20 [Rx Last Taken Unknown] carvedilol 12.5 mg PO BID 30 Days #60 tab 06/23/20 [Rx Last Taken Unknown] folic acid 1 mg PO DAILY #30 tab 06/23/20 [Rx Last Taken Unknown] hydralazine 75 mg PO TID 30 Days #135 tab 06/23/20 [Rx Last Taken Unknown] thiamine HCl (vitamin B1) [Vitamin B-1] 100 mg PO DAILYCM 30 Days #30 tab 06/23/20 [Rx Last Taken Unknown] mmfywavu-[id number]-VZ 4 drp EACH EAR Q8H 10 Days #10 ml 08/26/20 [Rx Last Taken Unknown] dicyclomine 20 mg PO BID #10 tab 10/24/20 [Rx Last Taken Unknown] ondansetron 4 mg PO Q8H #10 tab 10/24/20 [Rx Last Taken Unknown] hydrocodone-acetaminophen 1 tab PO Q6H PRN 3 Days #12 tab 04/19/21 [Rx Last Taken Unknown] hydrocodone-acetaminophen 1 tab PO Q4H PRN 4 Days #20 tab 05/19/21 [Rx Last Taken Unknown] Allergy/AdvReac Type Severity Reaction Status Date / Time egg AdvReac Nausea/Vom/ Verified 05/19/21 18:07 Diarrhea Social History Smoking Status: Current every day smoker tobacco type: cigarettes ROS ROS ED ROS Narrative Diarrhea. Off-balance. Review of Systems ROS Unobtainable: Denies due to encephalopathy Constitutional Constitutional ED: Denies fever(s) Eyes Eyes: Denies change in vision ENT ENT ED: Denies ear pain Cardiovascular Cardiovascular: Denies chest pain Respiratory/Chest Respiratory/Chest: Denies cough or dyspnea Gastrointestinal Gastrointestinal: Reports abdominal pain and diarrhea; Denies vomiting Genitourinary Genitourinary ED: Denies dysuria Musculoskeletal Musculoskeletal: Reports back pain; Denies arthralgias, myalgias or neck pain Integumentary Denies rash Neurologic Neurologic: Denies headache(s) Psychiatric Psychiatric: Denies depression Endocrine Endocrinology: Denies polyuria Hematologic/Lymphatic Hematologic/Lymphatic: Denies easy bruising Allergic/Immunologic Allergic/Immunologic ED: Denies urticaria EXAM Physical Exam Narrative Exam Narrative: 50-year-old male vital signs stable afebrile. Complaining of left flank and rib pain post fall in the bathtub. H EENT exam unremarkable atraumatic. Pupils round reactive light. No facial or scalp tenderness. C-spine nontender. Trachea midline. Lungs clear to auscultation bilaterally. Heart regular rhythm rate about 100 no murmur. Chest wall left lateral and lower posterior rib cage tenderness. Abdomen is soft diffusely tender no peritoneal signs. No bruising or signs of trauma. His left flank he also has tenderness but again no signs of trauma or bruising. Moving all 4 extremities. Equal petrophysical engineer strength. Dorsi plantarflexion intact. Normal range of motion. Nontender no deformity. Neurologically is awake and alert with no focal motor deficits. Const Vital Signs: 05/19/21 18:08 Temperature 97.8 F Temperature Source Temporal Pulse Rate 100 Respiratory Rate 24 H Blood Pressure 170/109 H Blood Pressure Mean 129 Pulse Ox 96 Oxygen Delivery Method Room Air Positive well nourished, well developed and obese; Negative for cachectic, contractures or unkempt General Appearance ED: well developed and NAD; Negative for unkempt, cachectic or contractures Nutritional Appearance: obese; Negative for cachectic HEENT Reports normocephalic atraumatic; Negative for trauma or tenderness Eyes PERRL and EOMs intact bilaterally General Eye ED: Negative for pale conjunctiva or scleral icterus Neck full ROM, no lymphadenopathy and supple General: Negative for tenderness Chest Wall inspection of chest normal and palpation of chest normal Resp normal respiratory effort, no retractions and clear to auscultation bilaterally Auscultation: Negative for rales, rhonchi or wheezes Cardio regular rate, regular rhythm, S1 normal heart sound, S2 normal heart sound and no murmurs GI non-distended and no masses; Negative for non-tender GI Narrative: Diffuse abdominal tenderness. No peritoneal signs. No signs of trauma. Inspection: Negative for abdominal distention Auscultation: normoactive bowel sounds Palpation: soft; Negative for guarding Back/Spine Negative for no CVA tenderness Back/Spine Narrative: Left flank tenderness. No spine tenderness. No signs of trauma. General Back: CVA tenderness Extremity normal to inspection, full ROM, no joint enlargement, no calf tenderness and no pedal edema Extremity Narrative: Nontender. No deformity. Neuro oriented x3 Sensorium / Orientation: alert, oriented to person, oriented to place and oriented to time; Negative for orientation impaired, confused, lethargic or stuporous Psych mental status grossly normal and thought process normal Appearance: Negative for unkempt Attitude: No agitated Mood & Affect: Negative for depressed, anxious or tearful Skin Lesions: no lesions and No lesion noted Rashes: no rashes and No rashes noted Trauma: Negative for abrasion MDM MDM MDM Narrative Medical decision making narrative: 50-year-old male states he has had trouble with his balance for months. Today getting in the tub he fell and has acute injury to his left rib cage and flank. He also is a history of excessive alcohol consumption. Due to the long history of problems with his balance and a CAT scan his head but he did not have any trauma that today. Also get screening labs looking for electrolyte abnormalities. Also get a CT of his abdomen and flank looking for acute trauma. Chest x-ray for possible rib injuries. He will be treated with morphine for pain and Zofran for nausea. Repeat exam patient is doing well at 9:20 PM. He and I went over all his test results. I explained to him that he had 3 rib fractures on the left. He will be written for [employer] for pain. To be given another dose of morphine prior to discharge. He knows he cannot drink and use the pain medication. Lab Data Attestation: I reviewed the patient's lab results. Lab results narrative: CBC unremarkable. Hemoglobin 9. H&H 16 and 49. Platelets 280. Electrolytes potassium 5.2 gap of 5 BUN 28 creatinine 2.12 is a history of renal insufficiency. Glucose of 305 and he has a history of diabetes. Liver enzymes unremarkable. CAT scan of his brain showed no acute abnormality read by the radiologist. Chest x-ray shows no acute abnormality. However on the CAT scan there are rib fractures of the left ribs 10, 11 and 12. As read by the radiologist and reviewed by me. Labs: Laboratory Results - last 24 hr 05/19/21 05/19/21 19:00 19:00 WBC 9.7 RBC 5.52 Hgb 16.7 H Hct 49.1 MCV 88.9 MCH 30.3 MCHC 34.0 RDW Std Deviation 40.7 RDW Coeff of Bev 12.4 Plt Count 280 MPV 10.9 Immature Gran % (Auto) 0.600 Neut % (Auto) 68.6 Lymph % (Auto) 19.1 [place]mer % (Auto) 6.5 Eos % (Auto) 4.7 Baso % (Auto) 0.5 Absolute Neuts (auto) 6.6 Absolute Lymphs (auto) 1.85 Nucleated RBC % 0 Sodium 136 Potassium 5.2 H Chloride 103 Carbon Dioxide 28.0 Anion Gap 5 BUN 28 H Creatinine 2.12 H Estim Creat Clear Calc 46.77 Est GFR (MDRD) Af Amer 43 L Est GFR (MDRD) Non-Af 36 L BUN/Creatinine Ratio 13.2 Glucose 305 H Calcium 9.1 Total Bilirubin 0.70 AST 22 ALT 22 Alkaline Phosphatase 95 Total Protein 7.7 Albumin 3.4 Globulin 4.3 H Albumin/Globulin Ratio 0.8 L Radiography Diagnostic Testing: Clinical Impression(s) from Imaging Studies Brain CT 05/19/21 18:25 IMPRESSION: Normal unenhanced CT scan of the brain. Electronically Signed: Michael Medley DO at 20:22 EDT , Abdomen/Pelvis CT 05/19/21 18:26 IMPRESSION: Multiple acute left lower rib fractures. Mild colonic diverticulosis. Old fractures of the left transverse processes in the lumbar region. Electronically Signed: Michael Medley DO at 20:52 EDT , Chest X-Ray 05/19/21 19:52 Chest x-ray AP and lateral view shows no acute abnormality. No obvious rib fractures are seen on the chest x-ray. No pneumothorax. No effusion. Interpreted by myself and the radiologist. CT flank does show rib fractures on the left of numbers 10, 11 and 12. Discharge Plan Triage Chief Complaint: Fall ED Provider: Anjel Vela Dx/Rx/DC Orders Clinical Impression: Fall, ETOH abuse, COPD (chronic obstructive pulmonary disease), Chronic kidney disease, Multiple fractures of ribs Instructions: ED Rib Fracture Prescriptions: New hydrocodone-acetaminophen 5-325 mg tablet 1 tab PO Q4H PRN (Reason: pain) 4 Days Qty: 20 RF: 0 No Action lisinopril-hydrochlorothiazide 20-12.5 mg tablet 1 tab PO DAILY RF: 0 Hold Instructions: Hold for 1 week until BMP next week/follow-up PCP hydroxyzine HCl 50 mg Tablet 50 mg PO TID PRN PRN (Reason: osullivan and itching) RF: 0 baclofen 10 mg tablet 10 mg PO 4X/DAY RF: 0 insulin aspart U-100 100 unit/mL solution 20 unit subcut TID RF: 0 gabapentin 300 mg capsule 300 mg PO TID RF: 0 omeprazole 20 mg Capsule,Delayed Release(Dr/Ec) 20 mg PO DAILY RF: 0 furosemide [Lasix] 20 mg Tablet 10 mg PO DAILY RF: 0 Hold Instructions: Hold for 1 week until BMP Basaglar KwikPen U-100 Insulin 100 unit/mL (3 mL) insulin pen 40 unit SUBCUT QHS RF: 0 gabapentin 600 mg tablet 600 mg PO TID RF: 0 albuterol sulfate 2.5 mg /3 mL (0.083 %) Solution For Nebulization 2.5 mg INHALATION Q4H PRN (Reason: breathing) RF: 0 tamsulosin [Flomax] 0.4 mg Capsule 0.4 mg PO DAILY RF: 0 budesonide-formoterol [Symbicort] 80-4.5 mcg/actuation Hfa Aerosol Inhaler 2 puff INHALATION BID RF: 0 carvedilol 12.5 mg Tablet 12.5 mg PO BID 30 Days Qty: 60 RF: 0 thiamine HCl (vitamin B1) [Vitamin B-1] 100 mg Tablet 100 mg PO DAILYCM 30 Days Qty: 30 RF: 0 amlodipine 10 mg Tablet 10 mg PO DAILY 30 Days Qty: 30 RF: 0 hydralazine 50 mg Tablet 75 mg PO TID 30 Days Qty: 135 RF: 0 folic acid 1 mg tablet 1 mg PO DAILY Qty: 30 RF: 0 [id number]-[id number]-PY 3.5-10,000-1 mg/mL-unit/mL-% solution 4 drp EACH EAR Q8H 10 Days Qty: 10 RF: 0 ondansetron 4 mg tablet,disintegrating 4 mg PO Q8H Qty: 10 RF: 0 dicyclomine 20 mg tablet 20 mg PO BID Qty: 10 RF: 0 hydrocodone-acetaminophen 5-325 mg tablet 1 tab PO Q6H PRN (Reason: pain) 3 Days Qty: 12 RF: 0 Primary Care Provider: Michael Ritter Referrals: Michael Ritter DO [Primary Care Provider] - 1 Week if not improving Activity Restrictions/Additional Instructions: You have 3 broken ribs on the left. Support the ribs with a pillow held to that site. Ice. Motrin for pain. [place] for pain. 1-2 every 4-6 hours. As needed. You cannot drink any alcohol while using the [place]. You cannot drive. Follow-up with your doctor if not improving. Disposition Disposition: Home, Self Care
[2021-05-19] MEDS: Ondansetron 4 MG/2 ML Vial IV (18:56)
[2021-05-19] MEDS: morphine 8 MG/ML Syringe IV (18:57)
[2021-05-19 19:13] LABS: Absolute Lymphocyte Count 1.85 X10^3/uL (0.83-4.51); Absolute Neutrophil Count 6.6 X10^3/uL (2.0-7.7); Basophil# 0.05 X10^3/uL; Basophil% 0.5 % (0-1); Eosinophil# 0.45 X10^3/uL; Eosinophils% 4.7 % (0-5); Hematocrit 49.1 % (40-54); Hemoglobin 16.7 g/dL (13.0-16.5); Lymphocyte # 1.85 X10^3/ul (0.83-4.51); Lymphocyte % 19.1 % (19-41); Mean Corpuscular Hgb 30.3 pg (27.0-32.0); Mean Corpuscular Volume 88.9 fL (80-94); Mean Platelet Vol. 10.9 fl (6.2-12.0); Monocyte# 0.63 X10^3/uL; Monocyte% 6.5 % (0-10); NRBC Flagged by Analyzer 0 % (0-5); Neutrophil # 6.63 X10^3/uL (2.7-7.7); Neutrophil % 68.6 % (47-70); Platelet Count 280 K/mm3 (150-450); RBC Distribution Width CV 12.4 % (11.6-14.6); RBC Distribution Width SD 40.7 fl (35.1-43.9); Red Blood Count 5.52 M/mm3 (4.6-6.2); White Blood Count 9.7 K/mm3 (4.4-11.0)
[2021-05-19 19:25] LABS: ALB/GLOB Ratio 0.8 RATIO (0.9-2.4); AST(SGOT) 22 U/L (15-37); Alanine Aminotransfer ALT/SGPT 22 U/L (16-61); Albumin, Serum 3.4 g/dL (3.2-5.0); Alkaline Phosphatase 95 U/L (45-117); Anion Gap 5 (5-15); BUN 28 mg/dL (7-18); BUN/Creat Ratio 13.2 RATIO (10-20); Calcium,Total 9.1 mg/dL (8.5-10.1); Chloride 103 mmol/L (98-107); Creatinine, Serum 2.12 mg/dL (0.70-1.30); EST Glomerular Filtration Rate 36 mL/min (>60); Est Glom Filt Rate - Afr Amer 43 mL/min (>60); Estimated Creatinine Clearance 46.77 ml/min; Globulin 4.3 g/dL (2.2-4.2); Glucose 305 mg/dL (74-106); Potassium 5.2 mmol/L (3.5-5.1); Protein, Total 7.7 g/dL (6.4-8.2); Sodium Level 136 mmol/L (136-145)
--- NOTE | 2021-05-19 19:52 | RAD_ITS ---
EXAM: X-ray chest PA and lateral. HISTORY: fall and rib pain TECHNIQUE: XR Chest 2 Views COMPARISON: AP portable upright October 24, 2020. LIMITATIONS: None. HEART: Normal size. TUBES/LINES: None. LUNGS: Mild prominent linear perihilar markings and markings in the lung bases are similar to prior exam. No definite infiltrate or effusion. PLEURA: Normal. MEDIASTINUM: Normal. BONES/SOFT TISSUES: Postoperative change at the C6-C7 level with stabilization plate, and intraspinous neurostimulator lead over the lower thoracic spine are again noted. OTHER: Cholecystectomy clips. IMPRESSION: Stable chest. No displaced rib fracture identified. Electronically Signed: Kalpana Conroy MD at 20:19 EDT , RAD/Chest PA and Lateral
[2021-05-19] MEDS: morphine 8 MG/ML Syringe 6 MG IV (21:29)
== END 2021-05-19 22:00 | disposition home or self-care (01) ==
PROVIDERS: Emergency Provider Emergency Medicine; PCP Family Medicine; Visit Provider Emergency Medicine
DX: S22.42XA Multiple fractures of ribs, left side, initial encounter for closed fracture (principal); J44.9 Chronic obstructive pulmonary disease, unspecified; E11.22 Type 2 diabetes mellitus with diabetic chronic kidney disease; E11.40 Type 2 diabetes mellitus with diabetic neuropathy, unspecified; G40.909 Epilepsy, unspecified, not intractable, without status epilepticus; Z79.4 Long term (current) use of insulin; F41.9 Anxiety disorder, unspecified; G89.29 Other chronic pain; F32.A Depression, unspecified; I12.9 Hypertensive chronic kidney disease with stage 1 through stage 4 chronic kidney disease, or unspecified chronic kidney disease; I25.2 Old myocardial infarction; Z79.899 Other long term (current) drug therapy; F10.10 Alcohol abuse, uncomplicated; F17.210 Nicotine dependence, cigarettes, uncomplicated; E66.9 Obesity, unspecified; W01.198A Fall on same level from slipping, tripping and stumbling with subsequent striking against other object, initial encounter; Y93.E1 Activity, personal bathing and showering; Y92.9 Unspecified place or not applicable; Z68.28 Body mass index [BMI] 28.0-28.9, adult
CPT/HCPCS: 70450; 71046; 74177; 80053; 85025; 96374; 96375; 96376; 99283; Q9967; A4216; J2405

== ENCOUNTER → 2021-07-14 | Outpatient (CLI) | payer MEDICARE, SELFPAY ==
[2021-07-14 10:50] LABS: Absolute Lymphocyte Count 2.09 X10^3/uL (0.83-4.51); Absolute Neutrophil Count 3.2 X10^3/uL (2.0-7.7); Basophil# 0.06 X10^3/uL; Basophil% 0.9 % (0-1); Eosinophils% 8.8 % (0-5); Hematocrit 48.6 % (40-54); Hemoglobin 15.4 g/dL (13.0-16.5); Lymphocyte # 2.09 X10^3/ul (0.83-4.51); Lymphocyte % 30.8 % (19-41); Mean Corp Hgb Conc 31.7 g/dL (32-36); Mean Corpuscular Hgb 28.9 pg (27.0-32.0); Mean Corpuscular Volume 91.2 fL (80-94); Mean Platelet Vol. 10.1 fl (6.2-12.0); Monocyte# 0.83 X10^3/uL; Monocyte% 12.2 % (0-10); NRBC Flagged by Analyzer 0 % (0-5); Neutrophil # 3.18 X10^3/uL (2.7-7.7); Neutrophil % 46.9 % (47-70); Platelet Count 361 K/mm3 (150-450); RBC Distribution Width CV 12.3 % (11.6-14.6); RBC Distribution Width SD 41.3 fl (35.1-43.9); Red Blood Count 5.33 M/mm3 (4.6-6.2); White Blood Count 6.8 K/mm3 (4.4-11.0)
[2021-07-14 11:06] LABS: Hemoglobin A1c 7.5 % (3.8-5.6)
[2021-07-14 11:07] LABS: ALB/GLOB Ratio 0.8 RATIO (0.9-2.4); AST(SGOT) 19 U/L (15-37); Alanine Aminotransfer ALT/SGPT 15 U/L (16-61); Albumin, Serum 3.2 g/dL (3.2-5.0); Alkaline Phosphatase 86 U/L (45-117); Anion Gap 3 (5-15); BUN 22 mg/dL (7-18); BUN/Creat Ratio 11.6 RATIO (10-20); Calcium,Total 9.1 mg/dL (8.5-10.1); Chloride 111 mmol/L (98-107); Cholesterol 167 mg/dL (200); EST Glomerular Filtration Rate 40 mL/min (>60); Est Glom Filt Rate - Afr Amer 49 mL/min (>60); Globulin 3.9 g/dL (2.2-4.2); Glucose 95 mg/dL (74-106); High Density Lipoprotein 43 mg/dL; Potassium 3.9 mmol/L (3.5-5.1); Protein, Total 7.1 g/dL (6.4-8.2); Sodium Level 142 mmol/L (136-145); Triglycerides 102 mg/dL; Very Low Density Lipoprotein 20 mg/dL (5-40)
[2021-07-14 11:33] LABS: Microalbumin:Creatinine Ratio 1258.8 mg/g CRE (<30 mg/g CRE)
== END | disposition home or self-care (01) ==
LOC: LAB 09:57
PROVIDERS: PCP Family Medicine; Visit Provider Family Medicine
DX: Z00.00 Encounter for general adult medical examination without abnormal findings (principal); E10.49 Type 1 diabetes mellitus with other diabetic neurological complication
CPT/HCPCS: 36415; 80053; 80061; 82043; 82570; 83036; 85025

== ENCOUNTER → 2021-08-01 | Outpatient (CLI) | payer MEDICARE, MEDICAID, SELFPAY ==
--- NOTE | 2021-08-01 15:05 | CT_ITS ---
STUDY: CT ABDOMEN AND PELVIS WITHOUT CONTRAST REASON FOR EXAM: Male, 51 years old. Abominal pain/hernia RADIATION DOSAGE (If Supplied By Facility): CTDIvol = ( 15.21 ) mGy, DLP = ( 727.39 ) mGycm TECHNIQUE: Transaxial images were obtained from the dome of the diaphragm to the symphysis pubis without oral contrast, and without intravenous contrast. Sagittal and coronal images were reconstructed. Individualized dose optimization techniques were used for this CT. COMPARISON: Comparison is made with prior study dated 05/19/2021 and 10/24/2020. FINDINGS: Stable mild increase in markings at the lung bases suggestive of scarring. Coronary artery calcification. Normal liver. There are surgical clips in the gallbladder fossa consistent with a prior cholecystectomy. Normal spleen. Normal pancreas. Normal bilateral adrenal glands. Normal right kidney. Normal left kidney. Normal visualized stomach. Normal small intestine. Normal colon. The appendix is visualized and appears normal. There is scattered atherosclerotic calcification of the abdominal aorta, without a demonstrated aneurysm. Normal inferior vena cava. Normal retroperitoneum. Normal urinary bladder. A right sided pain stimulator device is seen. The mesh is seen in the anterior upper abdominal wall. A mesh is also seen in the right side of the midline just superior to the umbilicus in keeping with prior anterior abdominal wall hernia repair. There are degenerative changes of the visualized lumbar spine. Prior right total hip replacement. Old fractures of the left transverse processes of the lumbar spine. Stable fracture of the left 10th through 12th ribs. CT/Abdomen/Pelvis without Cont IMPRESSION: Stable examination. No acute abnormality is seen. Electronically Signed: Dominick Fernandez MD at 15:34 EDT ,
== END | disposition home or self-care (01) ==
LOC: CT 15:04
PROVIDERS: PCP Family Medicine; Referring Provider Surgery; Visit Provider Surgery
DX: K46.9 Unspecified abdominal hernia without obstruction or gangrene (principal)
CPT/HCPCS: 74176